=== PATIENT | male | born 1950 | race Caucasian/White ===

== ENCOUNTER 2020-08-01 06:46 | Outpatient (CLI) | payer OTHER, SELFPAY ==
--- NOTE | 2020-08-01 06:56 | USCV_ITS ---
Fito Au Age: 70 Gender: M : 1950 Exam Date: 08/01/2020 07:16 Ordering Phys: Sacha Smith DO Technologist: Ileana Castillo Exam Location: [facility] [place] Indication: MURMUR BP: 135 / 60 HR: 55 Rhythm: Sinus Technical Quality: Adequate MEASUREMENTS (Male / Female) Normal Values 2D ECHO LV Diastolic Diameter PLAX 3.1 cm 4.2 - 5.9 / 3.9 - 5.3 cm LV Systolic Diameter PLAX 2.7 cm LV Chamber Size 3.1 cm IVS Diastolic Thickness 1.6 cm 0.6 - 1.0 / 0.6 - 0.9 cm IVS Systolic Thickness 1.8 cm LVPW Diastolic Thickness 2.2 cm 0.6 - 1.0 / 0.6 - 0.9 cm LVPW Systolic Thickness 2.5 cm RV Chamber Size 3.4 cm LVOT Diameter 2.0 cm LV Ejection Fraction 2D Teich 31.7 % LV Ejection Fraction MOD 2C 41.4 % LV Ejection Fraction 2C AL 46.4 % LA Diameter 3.8 cm LA Width 3.8 cm LA Height 5.1 cm RA Width 2.9 cm RA Height 4.2 cm M-MODE LV Diastolic Diameter MM 3.3 cm 4.2 - 5.9 / 3.9 - 5.3 cm LV Systolic Diameter MM 3.0 cm LV Ejection Fraction MM Teich 23.8 % IVS Diastolic Thickness MM 0.8 cm 0.6 - 1.0 / 0.6 - 0.9 cm IVS Systolic Thickness MM 1.1 cm LVPW Diastolic Thickness MM 1.9 cm 0.6 - 1.0 / 0.6 - 0.9 cm LVPW Systolic Thickness MM 1.8 cm Aortic Annulus Diameter 2.8 cm LA Ao Ratio MM 1.8 MV E Point Septal Separation 0.7 cm DOPPLER AV Peak Velocity 100.0 cm/s LVOT Peak Velocity 95.0 cm/s AV Area Cont Eq vti 2.6 cm squared AV Area Cont Eq pk 3.1 cm squared MV Area PHT 2.4 cm squared Mitral E to A Ratio 1.0 MV E' Velocity 48.0 cm/s Mitral E to MV E' Ratio 9.6 Mitral E to LV E' Lateral Ratio 10.1 Mitral E to LV E' Septal Ratio 9.2 TR Peak Velocity 118.0 cm/s TR Peak Gradient 5.6 mmHg TV Peak E Velocity 42.0 cm/s Right Atrial Pressure 3.0 mmHg Pulmonary Artery Systolic Pressu 8.6 mmHg PV Peak Velocity 71.0 cm/s RV Acceleration Time 0.1 s RV Ejection Time 0.4 s RV AcT/ET 0.4 FINDINGS Left Ventricle Normal left ventricular size. LV systolic function is borderline normal with EF of 50%. Septal motion is consistent with prior surgery. Normal diastolic filling pattern. Right Ventricle The right ventricle is normal in size and function. Right Atrium The right atrium is normal in size. Left Atrium The left atrium is normal in size. Mitral Valve Structurally normal mitral valve without significant stenosis or prolapse. There is trace mitral regurgitation. Aortic Valve Not well-visualized. No significant aortic stenosis. There is no aortic regurgitation. Tricuspid Valve Structurally normal tricuspid valve without significant stenosis or regurgitation. Insufficient TR jet to calculate RVSP. Pulmonic Valve Not well-visualized. There is no pulmonic regurgitation. Pericardium Normal pericardium without effusion. Aorta Not well-visualized. CONCLUSIONS LV systolic function is borderline normal with EF 50%. Septal motion is consistent with prior surgery. Normal diastolic function. Trace mitral regurgitation. Compared to prior echocardiogram from 10/15/2016, no significant changes are noted. Bettio Shields MD (Electronically Signed) Final Date: 11 August 2020 11:33 S
== END 2020-08-01 06:47 | disposition home or self-care (01) ==
LOC: US 06:51
PROVIDERS: PCP Internal Medicine; Visit Provider Internal Medicine
DX: R01.1 Cardiac murmur, unspecified (principal); I34.0 Nonrheumatic mitral (valve) insufficiency
CPT/HCPCS: 93306

== ENCOUNTER 2022-03-20 07:57 | Observation (INO) | payer OTHER, SELFPAY ==
[2022-03-20] VITALS (63 sets, daily range): BP systolic 121–201; BP diastolic 63–122; PULSE 72–107; RESP 13–25; TEMP 36.3–37.1; O2SAT 81–99; BMI 30.5
--- NOTE | 2022-03-20 08:00 | ED_ITS ---
HPI - Arrhythmia/Palpitations General: Chief Complaint: Arrhythmia/Palpitations Stated Complaint: irregular heart rythm, high hr Time Seen by Provider: 03/20/22 08:00 History of Present Illness: Mr. Au is a 71-year-old gentleman with history of heart failure, hypertension, CABG x4 who presents to the emergency department due to abnormal heart rhythm. He reports symptom onset approximately 3 days ago spontaneously and acute at rest. He endorses a irregular feeling in his heartbeat and abnormal feeling in his chest. He does have mild associated fatigue however no significant shortness of breath or chest pain. He reports similar symptoms 1 time previously and had a secured entrance monitor placed however did not have recurrence of symptoms. He is not on anticoagulation. Intensity symptoms is mild. No recent changes in medications. No other specific changes in health, exacerbating, or alleviating factors identified. Onset (ago): day(s) Duration: constant Severity: mild Arrhythmia history: other Associated symptoms: Reports other Review of Systems General: Reports: 10 or more systems reviewed and unremarkable except in HPI and below PFSH ED PFSH: Medical History (Updated 03/22/22 @ 00:02 by ) BPH (benign prostatic hyperplasia) CAD (coronary artery disease) CHF (congestive heart failure) Diabetes mellitus type 2 in nonobese History of WV (myocardial infarction) HTN (hypertension) Hyperlipidemia Palpitations Surgical History (Updated 03/20/22 @ 11:59 by Kody Lyles MD) S/P CABG (coronary artery bypass graft) S/P knee surgery Family History Other CAD (coronary artery disease) Dementia Hyperlipidemia Hypertension Stroke Denies family history of Diabetes Chronic kidney disease (CKD) Anesthesia complication Bleeding disorder Family history of premature coronary artery disease Lung disease Cancer Social History Smoking and tobacco status: former smoker Alcohol intake: current Alcohol intake frequency: few times a week Alcohol type: beer Physical Exam Const: COMMON NORMALS: alert GENERAL APPEARANCE: cooperative and well developed HENMT: COMMON NORMALS: normocephalic and atraumatic HEAD & SCALP: normocephalic and atraumatic Eye: COMMON NORMALS: conjunctivae normal CONJUNCTIVA: Yes conjunctivae normal SCLERA: sclerae normal Neck/C-Spine: COMMON NORMALS: supple GENERAL: Yes trachea midline Resp: COMMON NORMALS: normal respiratory effort and clear to auscultation bilaterally EFFORT & INSPECTION: Yes able to speak in complete sentences AUSCULTATION: clear to auscultation bilaterally Cardio: COMMON NORMALS: regular rate RATE: regular rate RHYTHM: abnormal rhythm irregularly irregular GI: COMMON NORMALS: Soft to palpation PALPATION: Yes Soft to palpation and No Tenderness to palpation present (GI) Extremity: GENERAL: Yes normal exam except as noted and No edema Neuro: COMMON NORMALS: moves all extremities SENSORIUM/ORIENTATION: Yes alert and No Orientation impaired Psych: COMMON NORMALS: mental status grossly normal and Normal thought process present THOUGHT PROCESS: Normal thought process present Course ED course: - Patient was seen and evaluated by me at bedside - Patient placed on cardiac monitors, IV access obtained - Initial evaluation notable for exam as above - Labs and xrays personally interpreted by me. EKG with atrial fibrillation, no nspecific ST segment abnormalities. No STEMI. - Labs notable for no clear abnormality to explain atrial fibrillation. Delta troponin is negative. BNP mildly elevated. No UTI. - Imaging notable for no lobar consolidation or pneumothorax. - Upon serial reexamination after treatment the patient was similar - Based on patient history, evaluation, and testing as interpreted the most likely cause of the patient's condition is symptomatic new onset atrial fibrillation - The results of ED evaluation were discussed with the patient including plan for admission due to requirement for level of care not available if discharged to prevent significant worsening/deterioration. - Admitting service was contacted and Dr Lyles with the hospital service agreed to admit the patient - Patient was admitted without further deterioration or significant events. Note: Click bubbles or prepopulated wolfe in note writing are used for assistance with data collection and billing and are inherently more limited than narrative and other text portions of this note. Please use narrative for additional clinical history and defer to narrative/free test for any case of contradictory information. If information appears in only free text or click bubble it should be considered present or absent as reported. Please contact note administrative underwriter for clarifications of clinical information or contradictory information. MDM is a brief summary, contradictory or erroneous seeming information should be clarified and full note should be reviewed. Vital Signs: Vital signs: Vital Signs Temperature 97.8 F 03/21/22 13:26 Pulse Rate 71 03/21/22 13:26 Respiratory Rate 16 03/21/22 13:26 Blood Pressure 107/72 03/21/22 13:26 Pulse Oximetry 96 03/21/22 13:26 Oxygen Delivery Me thod 03/21/22 12:00 MDM - Arrhythmia/Palpitations Medical Decision Making 71-year-old gentleman with cardiac history presenting with new onset symptomatic atrial fibrillation. Admitted for further management. Medical Records I reviewed the patient's medical records. Lab Data I reviewed the patient's lab results. : 03/21/22 05:30 03/21/22 05:30 Radiology Impressions Chest X-Ray 03/20/22 08:09 Impression: Mild cardiomegaly. Laboratory Results WBC 7.8 10^3/uL (4.0-10.0) 03/20/22 08:42 RBC 5.56 10^6/uL (4.1-5.3) H 03/20/22 08:42 Hgb 16.2 g/dL (11.7-16.6) 03/20/22 08:42 Hct 50.8 % (42.0-52.0) 03/20/22 08:42 MCV 91.4 fl (80-94) 03/20/22 08:42 MCH 29.1 pg (28.0-34.0) 03/20/22 08:42 MCHC 31.9 g/dL (30.0-36.0) 03/20/22 08:42 RDW 13.5 % (12.1-15.1) 03/20/22 08:42 Plt Count 212 10^3/cmm (130-400) 03/20/22 08:42 MPV 9.6 fL (7.4-10.4) 03/20/22 08:42 Neut % (Auto) 75.3 % 03/20/22 08:42 Lymph % (Auto) 11.5 % 03/20/22 08:42 Cole % (Auto) 11.5 % 03/20/22 08:42 Eos % (Auto) 1.0 % 03/20/22 08:42 Baso % (Auto) 0.4 % 03/20/22 08:42 Neut # (Auto) 5.89 10^3/uL (1.8-7.7) 03/20/22 08:42 Lymph # (Auto) 0.9 10^3/uL (0.8-4.8) 03/20/22 08:42 Cole # (Auto) 0.9 10^3/uL (0.2-0.9) 03/20/22 08:42 Eos # (Auto) 0.1 10^3/uL (0.0-0.8) 03/20/22 08:42 Baso # (Auto) 0.0 10^3/uL (0.0-0.1) 03/20/22 08:42 Nucleated RBC % (auto) 0 % 03/20/22 08:42 Nucleated RBCs # 0.0 /100WBC 03/20/22 08:42 PT 13.40 SECONDS (12.1-14.9) 03/20/22 08:42 INR 0.99 (0.8-1.2) 03/20/22 08:42 APTT 32.9 SECONDS (23.9-36.7) 03/20/22 08:42 Sodium 141 mmol/L (136-145) 03/20/22 08:42 Potassium 4.6 mmol/L (3.5-5.1) 03/20/22 08:42 Chloride 103 mmol/L (98-107) 03/20/22 08:42 Carbon Dioxide 28 mmol/L (22-29) 03/20/22 08:42 Anion Gap 14.6 (5-19) 03/20/22 08:42 BUN 16 mg/dL (8-23) 03/20/22 08:42 Creatinine 0.9 mg/dL (0.7-1.2) 03/20/22 08:42 GFR Calculation 83.4 mL/min (90-130) L 03/20/22 08:42 Glucose 120 mg/dL (65-115) H 03/20/22 08:42 Calculated Osmolality 294 mOsm/kg (285-295) 03/20/22 08:42 Calcium 9.8 mg/dL (8.5-10.5) 03/20/22 08:42 Magnesium 2.1 mg/dL (1.7-2.3) 03/20/22 08:42 Total Bilirubin 0.7 mg/dL (0.15-1.2) 03/20/22 08:42 AST 13 U/L (0-40) 03/20/22 08:42 ALT 12 U/L (0-41) 03/20/22 08:42 Alkaline Phosphatase 91 U/L (40-130) 03/20/22 08:42 Troponin T Baseline 12 ng/L (0-15) 03/20/22 08:42 NT-Pro-B Natriuret Pep 964 pg/mL (0-125) H 03/20/22 08:42 Total Protein 7.7 g/dL (6.6-8.7) 03/20/22 08:42 Albumin 4.7 g/dL (3.5-5.2) 03/20/22 08:42 Globulin 3.0 g/dL (1.3-4.6) 03/20/22 08:42 TSH 2.36 uIU/mL (0.27-4.20) 03/20/22 08:42 Discharge Plan Discharge Patient Disposition: Placed in Observation Admit Provider: Kody Lyles Clinical Impression: Palpitations, New onset a-fib, Shortness of breath Discharge Diet: Cardiac and Diabetic Discharge Activity: Increase activity as tolerated Coding Level of Care Code ED Store Protection Specialist for Chg Fwd Exam Comprehensive
--- NOTE | 2022-03-20 08:09 | XR_ITS ---
WS: [id number] Portable AP upright chest, 03/20/2022 Clinical Data: palpitations Comparison: Portable chest, 10/23/2016. Findings: No nodules, masses or effusions are seen. The heart is slightly enlarged. The pulmonary vas cularity is not increased. No pneumonia or pneumothorax is seen. Midline sternotomy sutures are prese nt along with mediastinal clips.. XR/XR chest 1V portable [id number] Impression: Mild cardiomegaly.
--- NOTE | 2022-03-20 08:14 | ECG_ITS ---
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 Measurements Intervals [place] Rate: 76 P: ID: QRS: -16 QRSD: 90 T: 5 QT: 352 QTc: 396 Interpretive Statements ATRIAL FIBRILLATION INFERIOR MYOCARDIAL INFARCTION , PROBABLY OLD [40+ ms Q WAVE AND/OR ST/T ABNORMALITY IN II/aVF] Compared to ECG 10/21/2016 05:31:38 Myocardial infarct finding now present Sinus tachycardia no longer present T-wave abnormality no longer present Possible ischemia no longer present Electronically Signed On 03-20-2022 17:46:55 CDT by Betito Shields M.D. [id number] f
[2022-03-20 08:57] LABS: Basophils % 0.4 %; Eosinophils # 0.1 10^3/uL (0.0-0.8); Hematocrit 50.8 % (42.0-52.0); Hemoglobin 16.2 g/dL (11.7-16.6); Lymphocytes # 0.9 10^3/uL (0.8-4.8); Lymphocytes % 11.5 %; Mean Corpuscular HGB Conc 31.9 g/dL (30.0-36.0); Mean Corpuscular Hemoglobin 29.1 pg (28.0-34.0); Mean Corpuscular Volume 91.4 fl (80-94); Mean Platelet Volume 9.6 fL (7.4-10.4); Monocytes # 0.9 10^3/uL (0.2-0.9); Monocytes % 11.5 %; Neutrophils # 5.89 10^3/uL (1.8-7.7); Neutrophils % 75.3 %; Nucleated Red Blood Cells % 0 %; Platelet Count 212 10^3/cmm (130-400); Red Blood Count 5.56 10^6/uL (4.1-5.3); Red Cell Distribution Width 13.5 % (12.1-15.1); White Blood Count 7.8 10^3/uL (4.0-10.0)
[2022-03-20 09:15] LABS: Troponin(5th) Baseline 12 ng/L (0-15)
[2022-03-20 09:20] LABS: Alanine Aminotransferase 12 U/L (0-41); Albumin Level 4.7 g/dL (3.5-5.2); Alkaline Phosphatase 91 U/L (40-130); Anion Gap 14.6 (5-19); Aspartate Amino Transferase 13 U/L (0-40); Blood Urea Nitrogen 16 mg/dL (8-23); Calcium 9.8 mg/dL (8.5-10.5); Carbon Dioxide 28 mmol/L (22-29); Chloride 103 mmol/L (98-107); Glomerular Filtration Rate 83.4 mL/min (90-130); Glucose 120 mg/dL (65-115); Magnesium 2.1 mg/dL (1.7-2.3); NT Pro B Type Natriuretic Pept 964 pg/mL (0-125); Osmolality Calculated 294 mOsm/kg (285-295); Potassium 4.6 mmol/L (3.5-5.1); Sodium 141 mmol/L (136-145); Thyroid Stimulating Hormone 2.36 uIU/mL (0.27-4.20); Total Bilirubin 0.7 mg/dL (0.15-1.2); Total Protein 7.7 g/dL (6.6-8.7)
[2022-03-20 09:27] LABS: INR 0.99 (0.8-1.2)
[2022-03-20 09:28] LABS: Partial Thromboplastin Time 32.9 SECONDS (23.9-36.7)
--- NOTE | 2022-03-20 09:33 | PC.PHAR ---
pt states he takes care of his own medications-pt states he stop taking aspirin a few months ago-pt states he stop taking his metformin er 500mg bid filled on 02/19/22 90d/s pt states stop taking about a month and half ago-
--- NOTE | 2022-03-20 10:34 | ECG_ITS ---
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 Measurements Intervals [place] Rate: 80 P: WV: QRS: -13 QRSD: 93 T: 68 QT: 357 QTc: 413 Interpretive Statements ATRIAL FIBRILLATION INFERIOR MYOCARDIAL INFARCTION , OF INDETERMINATE AGE [40+ ms Q WAVE AND/OR ST/T ABNORMALITY IN II/aVF] Compared to ECG 03/20/2022 08:14:16 No significant changes Electronically Signed On 03-20-2022 17:51:18 CDT by Betito Shields M.D. [id number]
--- NOTE | 2022-03-20 10:41 | USCV_ITS ---
Fito Au Age: 71 Gender: M : 1950 Exam Date: 03/20/2022 11:06 Ordering Phys: Kody Lyles MD Technologist: ISAAC Exam Location: [facility] [place] Indication: NEW ONSET A FIB BP: 170 / 116 HR: 81 Rhythm: Atrial fibrillation Technical Quality: Adequate MEASUREMENTS (Male / Female) Normal Values 2D ECHO LV Diastolic Diameter PLAX 5.2 cm 4.2 - 5.9 / 3.9 - 5.3 cm LV Systolic Diameter PLAX 3.6 cm IVS Diastolic Thickness 1.5 cm 0.6 - 1.0 / 0.6 - 0.9 cm IVS Systolic Thickness 2.3 cm LVPW Diastolic Thickness 1.7 cm 0.6 - 1.0 / 0.6 - 0.9 cm LVPW Systolic Thickness 1.9 cm LVOT Diameter 2.0 cm LV Ejection Fraction 2D Teich 58.3 % LV Ejection Fraction MOD 2C 55.6 % LV Ejection Fraction 2C AL 57.5 % LA Diameter 4.7 cm LA Width 4.1 cm LA Height 5.8 cm RA Width 3.9 cm RA Height 5.4 cm Aorta at Sinotubular Diameter 2.6 cm IVC Diameter 1.7 cm M-MODE Aortic Annulus Diameter 2.6 cm LA Ao Ratio MM 1.6 MV E Point Septal Separation 0.3 cm DOPPLER AV Peak Velocity 273.5 cm/s LVOT Peak Velocity 76.0 cm/s AV Area Cont Eq vti 0.8 cm squared AV Area Cont Eq pk 0.9 cm squared MV Peak Velocity 131.0 cm/s MV Area PHT 3.1 cm squared MV E' Velocity 58.5 cm/s Mitral E to MV E' Ratio 9.9 Mitral E to LV E' Lateral Ratio 9.0 Mitral E to LV E' Septal Ratio 11.1 TR Peak Velocity 203.1 cm/s TR Peak Gradient 16.5 mmHg TR Mean Velocity 183.0 cm/s TR Mean Gradient 13.4 mmHg TR Velocity Time Integral 57.2 cm TV Peak E Velocity 55.0 cm/s Right Atrial Pressure 3.0 mmHg Pulmonary Artery Systolic Pressu 19.5 mmHg PV Peak Velocity 184.0 cm/s RV Acceleration Time 0.1 s RV Ejection Time 0.3 s RV AcT/ET 0.3 FINDINGS Left Ventricle Normal left ventricular size, systolic function and wall thickness, with no regional wall motion abnormalities. Left ventricular ejection fraction is estimated at 60 %. Right Ventricle Normal right ventricular size and systolic function. Right Atrium Normal right atrial size. Left Atrium Mildly increased left atrial size. Mitral Valve Mildly thickened mitral valve. No mitral valve stenosis. Trace mitral valve regurgitation. Aortic Valve Moderately thickened and calcified trileaflet aortic valve. Visually appears to have at least moderate aortic valve stenosis. Aortic valve peak velocity 2.7 m/s, peak gradient 31 mm Hg, mean gradient 16.8 mmHg, FRANCES 0.8 cm squared. Dimensionless valve index 0.28. No aortic valve regurgitation. Tricuspid Valve Structurally normal tricuspid valve. No tricuspid valve stenosis. Trace tricuspid valve regurgitation. Pulmonic Valve Pulmonic valve not well visualized. No pulmonary valve stenosis. Trace pulmonary valve regurgitation. Pericardium No pericardial effusion. Aorta Normal size aortic root and proximal ascending aorta. IVC Normal IVC dimension with >50% respiratory change of the inferior vena cava. CONCLUSIONS 1. Normal left ventricular size, systolic function and wall thickness, with no regional wall motion abnormalities. Left ventricular ejection fraction is estimated at 60 %. 2. Visually appears to have at least moderate aortic valve stenosis. Aortic valve peak velocity 2.7 m/s, peak gradient 31 mm Hg, mean gradient 16.8 mmHg, FRANCES 0.8 cm squared. Dimensionless valve index 0.28. No aortic valve regurgitation. 3. When compared to previous study dated 08/01/2020, there may not have been any significant change. Medina Sims MD (Electronically Signed) Final Date: 20 March 2022 17:59 S
[2022-03-20 11:21] LABS: Glucose Urine UA Norm (Normal); Ketones Urine Negative (Negative); Protein Urine Neg (Negative); Specific Gravity, Urine 1.015 (1.005-1.030); Urine Appearance Clear (CLEAR); Urine Color Yellow (Yellow); pH Urine 5 (5-7)
[2022-03-20 11:22] LABS: Add Urine Culture? No; Bilirubin Urine Neg (Negative); Blood Urine Neg (Negative); Leukocyte Esterase Urine Negative (Negative); Nitrate Urine Negative (Negative); RBC Urine 0-4 /hpf (0-2); Squamous Epithelial Cell Urine 0-4 /hpf (0-5); Urobilinogen Urine Norm (Negative); WBC Urine 0-4 /hpf (0-5)
[2022-03-20 11:51] LABS: Troponin 5 2HR 8.07 ng/L (0-15)
--- NOTE | 2022-03-20 11:55 | PM.HP ---
Providers/Chief Complaint Admitting Physician: Kody Lyles MD Primary Care Provider: Sacha Smith DO Chief Complaint: irregular heart rythm, high hr History of Present Illness Fito Au is a 71 year old male who presents to the emergency department with complaints of palpitations since Wednesday. He denies any chest discomfort. He reports sometimes it feels like its going fast and sometimes slow. He denies any nausea vomiting, shortness of breath. He reports that while this was occurring he even went out to mow his lawn. He reports no recent illness, fever. He does report to drinking alcohol on occasion, sometimes perhaps as many as 5 beers on the weekends. On average though he drinks less than 1/day. He reports quite a bit of caffeine, 6-7 drinks per day. He had a previous echocardiogram in 2020 demonstrating no evidence of atrial fibrillation or flutter. This was done for palpitations. Review of Systems General: Reports: 10 or more systems reviewed and unremarkable except in HPI and below Const: Denies: fever(s) or chills Eyes: Denies: change in vision ENMT: Denies: throat pain Card: Reports: palpitations and irregular heart rhythm; Denies: chest pain, swelling of feet/ankles or dyspnea on exertion Resp: Denies: dyspnea GI: Denies: abdominal pain, nausea, vomiting, hematemesis, hematochezia or melena : Denies: flank pain Musc: Denies: neck pain Skin/Breast: Denies: rash Neuro: Denies: headache(s) Psych: Denies: anxiety or depression Endo: Denies: polyuria Ronal/Lymph: Denies: easy bruising All/Imm: Denies: urticaria Medications/Allergies Home Medications Medication Instructions Recorded Confirmed Last Taken Type metoprolol tartrate 50 mg tablet 50 mg PO BID #60 tabs 10/13/21 03/20/22 03/20/22 Rx amlodipine 10 mg tablet 10 mg PO QAM 03/20/22 03/20/22 03/20/22 History amlodipine 5 mg tablet 5 mg PO BEDTIME 03/20/22 03/20/22 03/19/22 History isosorbide mononitrate 30 mg 30 mg PO QAM 03/20/22 03/20/22 03/20/22 History tablet,extended release 24 hr losartan 100 mg tablet 100 mg PO QAM 03/20/22 03/20/22 03/20/22 History metformin 500 mg tablet,extended 500 mg PO BID 03/20/22 03/20/22 1 Month Ago History release 24 hr ~02/17/22 pt stop taking simvastatin 40 mg tablet 40 mg PO BEDTIME 03/20/22 03/20/22 03/19/22 History tamsulosin 0.4 mg capsule 0.4 mg PO BEDTIME 03/20/22 03/20/22 03/19/22 History Allergies Allergy/AdvReac Type Severity Reaction Status Date / Time No Known Allergies Allergy Verified 03/20/22 09:30 PFSH Acute PFSH: Medical History (Updated 03/20/22 @ 12:03 by Kody Lyles MD) BPH (benign prostatic hyperplasia) CAD (coronary artery disease) CHF (congestive heart failure) Diabetes mellitus type 2 in nonobese History of [place] (myocardial infarction) HTN (hypertension) Hyperlipidemia Palpitations Surgical History (Updated 03/20/22 @ 11:59 by Kody Lyles MD) S/P CABG (coronary artery bypass graft) S/P knee surgery Family History Other CAD (coronary artery disease) Dementia Hyperlipidemia Hypertension Stroke Denies family history of Diabetes Chronic kidney disease (CKD) Anesthesia complication Bleeding disorder Family history of premature coronary artery disease Lung disease Cancer Social History Smoking and tobacco status: former smoker Alcohol intake: current Alcohol intake frequency: few times a week Alcohol type: beer Vitals/I&O/Wt Last Vital Signs Temp 97.9 F 03/20/22 08:03 Pulse 84 03/20/22 11:00 Resp 21 H 03/20/22 11:00 BP 159/89 03/20/22 11:00 Pulse Ox 94 03/20/22 11:00 O2 Del Method 03/20/22 08:31 Weight last 48 hrs Weight 96.615 kg Physical Exam Narrative: General exam is a white male, no apparent distress, irregular heart rhythm noted on monitor HEENT: Atraumatic and normocephalic. Pupils equally round. Oropharynx clear. Neck is supple no lymphadenopathy or thyromegaly Cardiovascular irregular, irregular with a harsh 3/6 systolic murmur heard best at the right upper sternal border. Sternotomy scar noted Lungs clear no wheezing or crackles Abdomen is soft nontender with positive bowel sounds no obvious organomegaly exams deferred Extremities no cyanosis clubbing or edema, cap refill brisk Skin without rash Neuro no obvious focal deficits Data : 03/20/22 08:42 03/20/22 08:42 Other Labs: EKG demonstrates atrial flutter, left axis deviation, Q waves inferiorly and poor R wave progression Previous echocardiogram in 2019 demonstrated an EF of 50% and trace mitral regurgitation BNP 964, troponin 12 and repeat of 8 LFTs normal TSH 2.36 Magnesium normal Urinalysis negative Chest x-ray no infiltrate. Postoperative heart noted secondary to sternotomy wires A&P Assessment and plan (1) New onset a-fib: Patient with new onset atrial fibrillation/flutter. Discussed bleeding risk with the patient. Will initiate full dose anticoagulation. Initiate Lovenox with plans to convert to Eliquis quickly by time of discharge. [id number] score elevated with hypertension, coronary disease history in face of atrial fibrillation. He is amenable to anticoagulation. Currently he is well controlled as far as his rate. No change in his metoprolol 50 mg twice daily. Check echocardiogram to ensure that EF has not been reduced significantly. If it is could consider nuclear stress testing, possibly as an outpatient Status: Acute (2) Heart murmur: Significant heart murmur. Await echocardiogram. Concerned with aortic stenosis. Status: Acute (3) CAD (coronary artery disease): Add aspirin, low-dose. Continue the patient's home medicines including beta-maximus, statin, nitrate Status: Acute (4) Diabetes mellitus type 2 in nonobese: Consistent carb diet, mild sliding scale insulin Status: Acute Plan Other medical problems as outlined in past medical history Full Code Lovenox will suffice for DVT prophylaxis Attestations Medical Necessity Statement*: Will need less than 2 midnight stay for evaluation and treatment of new onset atrial flutter Coding Level of Care Code Acute [place] for [facility] Diagnoses New onset a-fib I48.91 Heart murmur R01.1 CAD (coronary artery disease) I25.10 Diabetes mellitus type 2 in nonobese E11.9
[2022-03-20 12:29] LABS: Troponin 5 2HR Delta -3.93 ABS# (0-10)
[2022-03-20] MEDS: enoxaparin 100 mg/mL Syringe SUBCUT (13:24)
[2022-03-20 13:45] LABS: Glucose Point of Care 101 mg/dL (70-110)
--- NOTE | 2022-03-20 14:09 | ECG_ITS ---
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 Measurements Intervals [place] Rate: 75 P: [place]: QRS: -17 QRSD: 95 T: 76 QT: 364 QTc: 409 Interpretive Statements ATRIAL FIBRILLATION POSSIBLE ANTERIOR MYOCARDIAL INFARCTION , OF INDETERMINATE AGE [30 ms Q WAVE IN V3/V4, OR R < 0.2 mV IN V4] INFERIOR MYOCARDIAL INFARCTION , PROBABLY OLD [40+ ms Q WAVE AND/OR ST/T ABNORMALITY IN II/aVF] Compared to ECG 03/20/2022 10:34:57 No significant changes Electronically Signed On 03-20-2022 17:48:30 CDT by Betito Shields M.D. [id number]
[2022-03-20 15:14] LABS: Troponin 5 6HR 7.89 ng/L (0-15)
[2022-03-20 15:46] LABS: Troponin 5 6HR Delta -4.11 ng/L (0-12)
[2022-03-20 16:59] LABS: Glucose Point of Care 139 mg/dL (70-110)
[2022-03-20] MEDS: atorvastatin 40 mg Tablet 20 MG PO (21:47)
[2022-03-20] MEDS: tamsulosin 0.4 mg Capsule PO (21:47)
[2022-03-21] VITALS (7 sets, daily range): BP systolic 107–158; BP diastolic 72–93; PULSE 70–88; RESP 16–19; TEMP 36.5–36.8; O2SAT 94–96
[2022-03-21] MEDS: enoxaparin 100 mg/mL Syringe SUBCUT ×2 (01:19→11:54)
[2022-03-21] MEDS: losartan 50 mg Tablet 100 MG PO (05:32)
[2022-03-21] MEDS: isosorbide mononitrate ER 30 mg Tablet PO (05:35)
[2022-03-21] MEDS: amlodipine 10 mg Tablet PO (05:36)
[2022-03-21 05:49] LABS: Basophils % 0.4 %; Eosinophils # 0.1 10^3/uL (0.0-0.8); Eosinophils % 1.5 %; Hematocrit 43.6 % (42.0-52.0); Hemoglobin 14.1 g/dL (11.7-16.6); Lymphocytes # 1.2 10^3/uL (0.8-4.8); Lymphocytes % 18.1 %; Mean Corpuscular HGB Conc 32.3 g/dL (30.0-36.0); Mean Corpuscular Hemoglobin 29.4 pg (28.0-34.0); Mean Corpuscular Volume 90.8 fl (80-94); Mean Platelet Volume 9.6 fL (7.4-10.4); Monocytes # 0.8 10^3/uL (0.2-0.9); Monocytes % 12.3 %; Neutrophils # 4.62 10^3/uL (1.8-7.7); Neutrophils % 67.4 %; Nucleated Red Blood Cells % 0 %; Platelet Count 183 10^3/cmm (130-400); Red Cell Distribution Width 13.3 % (12.1-15.1); White Blood Count 6.9 10^3/uL (4.0-10.0)
[2022-03-21 06:09] LABS: Glucose Point of Care 118 mg/dL (70-110)
[2022-03-21 06:15] LABS: Alanine Aminotransferase 9 U/L (0-41); Albumin Level 3.9 g/dL (3.5-5.2); Alkaline Phosphatase 77 U/L (40-130); Anion Gap 13.3 (5-19); Aspartate Amino Transferase 14 U/L (0-40); Blood Urea Nitrogen 14 mg/dL (8-23); Calcium 9.1 mg/dL (8.5-10.5); Carbon Dioxide 27 mmol/L (22-29); Chloride 106 mmol/L (98-107); Globulin 2.9 g/dL (1.3-4.6); Glomerular Filtration Rate 95.6 mL/min (90-130); Glucose 125 mg/dL (65-115); Magnesium 2.1 mg/dL (1.7-2.3); Osmolality Calculated 296 mOsm/kg (285-295); Potassium 4.3 mmol/L (3.5-5.1); Sodium 142 mmol/L (136-145); Total Bilirubin 0.5 mg/dL (0.15-1.2); Total Protein 6.8 g/dL (6.6-8.7)
[2022-03-21] MEDS: aspirin 81 mg EC Tablet PO (09:05)
[2022-03-21] MEDS: metoprolol tartrate 50 mg Tablet PO (09:05)
[2022-03-21 11:34] LABS: Glucose Point of Care 132 mg/dL (70-110)
--- NOTE | 2022-03-21 13:10 | P.DS_ITS ---
Discharge Providers Date of Admission: 03/20/22 09:43 Date of Discharge: March 21, 2022 Attending Provider at Admission: Kody Lyles MD Attending Provider at Discharge: Kennedy Landrum Primary Care Provider: Sacha Smith DO Diagnoses at Discharge Discharge Diagnosis (1) New onset a-fib: Status: Acute (2) Heart murmur: Status: Acute (3) CAD (coronary artery disease): Status: Acute (4) Diabetes mellitus type 2 in nonobese: Status: Acute Reason for Visit Reason for Visit: irregular heart rythm, high hr Hospital Course Hospital Course Pleasant 71-year-old gentleman with history of CAD, HFpEF, DM2, HTN, HLD, presented after having palpitations, found to have new onset atrial fibrillation. Rate for the most part controlled on the metoprolol he has been on although initially noted occasionally rising up to 105-107. He denies any chest pain or pressure. Troponin EKG series not suggestive of acute MN. [place] rdiogram showed normal ejection fraction. No regional wall motion normality. Noted at least moderate aortic stenosis. He is feeling much better. With heart rate controlled he denies any chest pain or pressure and currently is not having any palpitations. He feels good about going home. While in the hospital he was started on anticoagulation with Lovenox for stroke risk reduction, and this was transitioned to Eliquis at discharge. Please follow-up with him regarding his symptoms, as well as regarding at least moderate aortic stenosis. Consider referral to cardiology for follow-up. Continue to optimize cardiovascular risk factors. Physical Exam Const: COMMON NORMALS: patient oriented x3 and alert GENERAL APPEARANCE: cooperative ORIENTATION/CONSCIOUSNESS: Yes awake HENMT: COMMON NORMALS: oropharynx normal Neck/C-Spine: COMMON NORMALS: no JVD Resp: COMMON NORMALS: normal respiratory effort and clear to auscultation bilaterally AUSCULTATION: clear to auscultation bilaterally Cardio: COMMON NORMALS: no JVD, S1 normal heart sound present, S2 normal heart sound present and No murmurs present (Cardio) RHYTHM: abnormal rhythm irregularly irregular HEART SOUNDS: S1 normal heart sound present and S2 normal heart sound present GI: COMMON NORMALS: Normal to inspection, nondistended, normoactive bowel sounds present, Soft to palpation and non-tender PALPATION: Yes Soft to palpation Extremity: COMMON NORMALS: no joint enlargement and no pedal edema Neuro: COMMON NORMALS: patient oriented x3 and moves all extremities SENSO RIUM/ORIENTATION: Yes alert Skin: COMMON NORMALS: no rashes or lesions noted GENERAL SKIN EXAM: no rashes or lesions noted Discharge Data Studies Completed and Pending Completed Studies During Hospitalization Category Date Time Status XR chest 1V portable [id number] Stat Exams 03/20/22 08:09 Completed CV. echo complete* [id number] Routine Ultrasound 03/20/22 10:41 Completed Radiology Impressions Chest X-Ray 03/20/22 08:09 Impression: Mild cardiomegaly. Laboratory Results WBC 6.9 10^3/uL (4.0-10.0) 03/21/22 05:30 RBC 4.80 10^6/uL (4.1-5.3) 03/21/22 05:30 Hgb 14.1 g/dL (11.7-16.6) 03/21/22 05:30 Hct 43.6 % (42.0-52.0) 03/21/22 05:30 MCV 90.8 fl (80-94) 03/21/22 05:30 MCH 29.4 pg (28.0-34.0) 03/21/22 05:30 MCHC 32.3 g/dL (30.0-36.0) 03/21/22 05:30 RDW 13.3 % (12.1-15.1) 03/21/22 05:30 Plt Count 183 10^3/cmm (130-400) 03/21/22 05:30 MPV 9.6 fL (7.4-10.4) 03/21/22 05:30 Neut % (Auto) 67.4 % 03/21/22 05:30 Lymph % (Auto) 18.1 % 03/21/22 05:30 Vernon % (Auto) 12.3 % 03/21/22 05:30 Eos % (Auto) 1.5 % 03/21/22 05:30 Baso % (Auto) 0.4 % 03/21/22 05:30 Neut # (Auto) 4.62 10^3/uL (1.8-7.7) 03/21/22 05:30 Lymph # (Auto) 1.2 10^3/uL (0.8-4.8) 03/21/22 05:30 Vernon # (Auto) 0.8 10^3/uL (0.2-0.9) 03/21/22 05:30 Eos # (Auto) 0.1 10^3/uL (0.0-0.8) 03/21/22 05:30 Baso # (Auto) 0.0 10^3/uL (0.0-0.1) 03/21/22 05:30 Nucleated RBC % (auto) 0 % 03/21/22 05:30 Nucleated RBCs # 0.0 /100WBC 03/21/22 05:30 PT 13.40 SECONDS (12.1-14.9) 03/20/22 08:42 INR 0.99 (0.8-1.2) 03/20/22 08:42 APTT 32.9 SECONDS (23.9-36.7) 03/20/22 08:42 Sodium 142 mmol/L (136-145) 03/21/22 05:30 Potassium 4.3 mmol/L (3.5-5.1) 03/21/22 05:30 Chloride 106 mmol/L (98-107) 03/21/22 05:30 Carbon Dioxide 27 mmol/L (22-29) 03/21/22 05:30 Anion Gap 13.3 (5-19) 03/21/22 05:30 BUN 14 mg/dL (8-23) 03/21/22 05:30 Creatinine 0.8 mg/dL (0.7-1.2) 03/21/22 05:30 GFR Calculation 95.6 mL/min (90-130) 03/21/22 05:30 Glucose 125 mg/dL (65-115) H 03/21/22 05:30 POC Glucose 132 mg/dL (70-110) H 03/21/22 11:09 Calculated Osmolality 296 mOsm/kg (285-295) H 03/21/22 05:30 Calcium 9.1 mg/dL (8.5-10.5) 03/21/22 05:30 Magnesium 2.1 mg/dL (1.7-2.3) 03/21/22 05:30 Total Bilirubin 0.5 mg/dL (0.15-1.2) 03/21/22 05:30 AST 14 U/L (0-40) 03/21/22 05:30 ALT 9 U/L (0-41) 03/21/22 05:30 Alkaline Phosphatase 77 U/L (40-130) 03/21/22 05:30 Troponin T Baseline 12 ng/L (0-15) 03/20/22 08:42 Troponin T 120 Minute 8.07 ng/L (0-15) 03/20/22 10:50 Delta Troponin T -3.93 ABS# (0-10) L 03/20/22 10:50 Troponin T Hi Sens 6Hr 7.89 ng/L (0-15) 03/20/22 14:45 Troponin T Hi Sens 6Hr Delta -4.11 ng/L (0-12) L 03/20/22 14:45 NT-Pro-B Natriuret Pep 964 pg/mL (0-125) H 03/20/22 08:42 Total Protein 6.8 g/dL (6.6-8.7) 03/21/22 05:30 Albumin 3.9 g/dL (3.5-5.2) 03/21/22 05:30 Globulin 2.9 g/dL (1.3-4.6) 03/21/22 05:30 TSH 2.36 uIU/mL (0.27-4.20) 03/20/22 08:42 Urine Color Yellow (Yellow) 03/20/22 10:51 Urine Appearance Clear (CLEAR) 03/20/22 10:51 Urine pH 5 (5-7) 03/20/22 10:51 Ur Specific [place] 1.015 (1.005-1.030) 03/20/22 10:51 Urine Protein Neg (Negative) 03/20/22 10:51 Urine Glucose (UA) Norm (Normal) 03/20/22 10:51 Urine Ketones Negative (Negative) 03/20/22 10:51 Urine Blood Neg (Negative) 03/20/22 10:51 Urine Nitrate Negative (Negative) 03/20/22 10:51 Urine Bilirubin Neg (Negative) 03/20/22 10:51 Urine Urobilinogen Norm mg/dL (Negative) 03/20/22 10:51 Ur Leukocyte Esterase Negative (Negative) 03/20/22 10:51 Urine RBC 0-4 /hpf (0-2) H 03/20/22 10:51 Urine WBC 0-4 /hpf (0-5) H 03/20/22 10:51 Ur Squamous Epith Cells 0-4 /hpf (0-5) H 03/20/22 10:51 Amorphous Sediment Not Reportable 03/20/22 10:51 Urine Bacteria None /hpf (NONE) 03/20/22 10:51 Vitals Last Vital Signs Temp 97.8 F 03/21/22 12:00 Pulse 71 03/21/22 12:00 Resp 16 03/21/22 12:00 BP 107/72 03/21/22 12:00 Pulse Ox 96 03/21/22 12:00 O2 Del Method 03/21/22 12:00 Discharge Plan Discharge Patient Disposition: Home Condition: Stable Prescriptions: New apixaban 5 mg tablet 5 mg PO BID Qty: 180 0RF Continued metoprolol tartrate 50 mg tablet 50 mg PO BID Qty: 60 0RF Rx Instructions: Make follow-up for further refills amlodipine 5 mg tablet 5 mg PO BEDTIME tamsulosin 0.4 mg capsule 0.4 mg PO BEDTIME isosorbide mononitrate 30 mg tablet extended release 24 hr 30 mg PO QAM Rx Instructions: Needs follow-up for further refills simvastatin 40 mg tablet 40 mg PO BEDTIME amlodipine 10 mg tablet 10 mg PO QAM losartan 100 mg tablet 100 mg PO QAM Rx Instructions: Make follow-up for further refills metformin 500 mg tablet extended release 24 hr 500 mg PO BID Discharge Orders: Discharge Order (Routine); Ordered 03/21/22 Ordered By: Kennedy Landrum Referrals: Sacha Smith DO [Primary Care Provider] - 4-7 days (Please call Martínez Meade for an follow-up appointment in 4 to 7 days. ) Discharge Diet: Cardiac and Diabetic Discharge Activity: Increase activity as tolerated Patient Instructions: Apixaban (By mouth), A-fib (Atrial Fibrillation) (GEN), Aortic Stenosis (GEN) Activity Restrictions/Additional Instructions: Please discuss with your primary doctor regarding new onset atrial fibrillation. Please discuss regarding being started on anticoagulation with Eliquis. Please discuss with your doctor regarding at least moderate aortic stenosis. Discuss referral for follow-up with cardiology. Discharge Attestations Time Spent in Discharge Care*: greater than 30 min Quality Metrics Clinical Quality Measures [ No reported AMI, CVA or VTE this stay] Coding Level of Care Code Acute Chg FW DC note Diagnoses New onset a-fib I48.91 Heart murmur R01.1 CAD (coronary artery disease) I25.10 Diabetes mellitus type 2 in nonobese E11.9
== END 2022-03-21 13:28 | disposition home or self-care (01) ==
LOC: ER 09:43 → MEDSURG 14:26
PROVIDERS: Admitting Provider Internal Medicine; Emergency Provider Emergency Medicine; PCP Internal Medicine; Visit Provider Internal Medicine
DX: I48.91 Unspecified atrial fibrillation (principal); R01.1 Cardiac murmur, unspecified; I25.10 Atherosclerotic heart disease of native coronary artery without angina pectoris; E11.9 Type 2 diabetes mellitus without complications; I11.0 Hypertensive heart disease with heart failure; I50.30 Unspecified diastolic (congestive) heart failure; E78.5 Hyperlipidemia, unspecified; N40.0 Benign prostatic hyperplasia without lower urinary tract symptoms; I25.2 Old myocardial infarction; Z95.1 Presence of aortocoronary bypass graft; Z87.891 Personal history of nicotine dependence
CPT/HCPCS: 36415; 36416; 71045; 80053; 81001; 82962; 83735; 83880; 84443; 84484; 85025; 85610; 85730; 93005; 93306; 96372; 99285; G0378; J1650

== ENCOUNTER 2022-07-17 08:56 | Outpatient (CLI) | payer OTHER, SELFPAY ==
[2022-07-17 10:01] VITALS: BMI 31.0
--- NOTE | 2022-07-17 10:05 | NMCV_ITS ---
NM yuki perf SPECT r/s* [id number] Fito Au Age: 71 Gender: M : 1950 Exam Date: 07/17/2022 10:22 Ordering Phys: Nuha Connell MD ([email or web address]) Technologist: HEIDI Cruz Exam Location: [facility] Indications: HEART FAILURE STRESS TEST Please see separate stress test report in [facility] for full findings IMAGE PROTOCOL Rest/Stress 1 Lexiscan Day Radiopharmaceutical Dose (mCi) Administration Site Administered by Rest: Tc-99m 11.0 IV HEIDI Cruz Sestamibi Stress:Tc-99m 32.3 IV HEIDI Parisi Sestamibi Rest: 17-Jul-2022 60 Discovery 630 Stress: 17-Jul-2022 30 Discovery 630 0.4mg Lexiscan. Images obtained in supine and prone position. SPECT RESULTS Technical Quality: Excellent Raw Data Analysis: Normal Image Corrections: No attenuation or motion correction applied Summed Stress Score: 6 Summed Rest Score: 9 Summed Difference Score: 1 PERFUSION FINDINGS Moderate area of moderately decreased tracer uptake in the basal and mid inferior and mid inferoseptal regions. As subtle area of reversibility was noted in the mid inferoseptal region FUNCTIONAL RESULTS (calculated via Gated SPECT) Stress Image LV EF (%): 56 Stress EDV (mL):137 TID: 1.12 Stress ESV (mL):60 FUNCTIONAL FINDINGS: Segmental wall motion analysis revealing a diffuse hypokinesia of the septum IMPRESSIONS #1. Myocardial perfusion imaging revealing moderate area of persistent decreased tracer uptake in the distal and mid inferior and mid inferoseptal regions with a subtle area of reversibility in the inferoseptal region suggesting myocardial scarring in the distribution of the right coronary artery with a very small area of filomena-infarction ischemia. #2. Normal LV ejection fraction 56%. #3. LV wall motion analysis revealing diffuse hypokinesia of the septum. #4. Mildly dilated LV cavity, with an end-systolic volume of 60 mL No similar previous studies are available for comparison Dr Nuha Connell MD [facility] (Electronically Signed) Final Date: 17 July 2022 21:42 S
--- NOTE | 2022-07-17 10:05 | ECG_ITS ---
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 Interpretive Statements NAME OF STUDY: LEXISCAN SESTAMIBI STRESS TEST INDICATION: CHF, PROCEDURE: At the baseline, the EKG revealed normal sinus rhythm with a borderline first-degree AV block. Poor R wave progression. Nonspecific T wave changes. The baseline heart was 55 bpm with a blood pressue of 108/80 mm of Hg. Lexiscan was infused over a period of 20 seconds. A total of 0.4 milligrams of Lexiscan was infused. The stress phase was continued for a total of 5 minutes. Heart rate at the end of the stress phase was 69 bpm with a blood pressure 117/72 mm of Hg. The EKG at the peak infusion revealed no significant changes. Sestamibi was injected 20 seconds after the Lexiscan infusion. Heart rate at the end of the recovery phase was 62 bpm with a blood pressure of 132/71 mm of Hg. CONCLUSION: 1. No significant EKG changes with the LexiScan infusion 2. No LexiScan induced chest pain or cardiac arrhythmia 3. Normal blood pressure and heart rate response 4. Sestamibi/sestamibi perfusion scan pending; see separate report. Electronically Signed On 07-17-2022 16:25:26 SAVE ALL OPERATOR by Nuha Connell M.D. [email or web address]
[2022-07-17] MEDS: regadenoson 0.4 Mg/5 ml Syringe IVP (10:50)
[2022-07-17 12:42] VITALS: BP 132/71; PULSE 64
== END 2022-07-17 08:57 | disposition home or self-care (01) ==
LOC: CDL 08:57
PROVIDERS: PCP Internal Medicine; Visit Provider Internal Medicine Cardiovascular Disease
DX: I50.9 Heart failure, unspecified (principal)
CPT/HCPCS: 36415; 78452; 93017; 96374; A9500; J2785

== ENCOUNTER 2022-11-13 12:13 | Outpatient (CLI) | payer OTHER, SELFPAY ==
--- NOTE | 2022-11-13 12:00 | USCV_ITS ---
Fito Au Age: 72 Gender: M : 1950 Exam Date: 11/13/2022 12:56 Ordering Phys: Nuha Connell MD ([email or web address]) Technologist: [place]am [place] [facility] [place]ication: as BP: 150 / 80 HR: 57 Rhythm: Sinus Technical Quality: Adequate MEASUREMENTS (Male / Female) Normal Values 2D ECHO LV Diastolic Diameter PLAX 3.9 cm 4.2 - 5.9 / 3.9 - 5.3 cm LV Systolic Diameter PLAX 2.8 cm IVS Diastolic Thickness 1.2 cm 0.6 - 1.0 / 0.6 - 0.9 cm IVS Systolic Thickness 1.8 cm LVPW Diastolic Thickness 1.6 cm 0.6 - 1.0 / 0.6 - 0.9 cm LVPW Systolic Thickness 2.0 cm LVOT Diameter 2.0 cm LV Ejection Fraction 2D Teich 54.9 % LV Ejection Fraction MOD 2C 75.8 % LV Ejection Fraction 2C AL 76.1 % LA Diameter 5.3 cm Aorta at Sinotubular Diameter 2.4 cm M-MODE Aortic Annulus Diameter 3.8 cm LA Ao Ratio MM 1.4 MV E Point Septal Separation 0.7 cm DOPPLER AV Peak Velocity 303.0 cm/s LVOT Peak Velocity 98.0 cm/s AV Area Cont Eq vti 1.3 cm squared AV Area Cont Eq pk 1.0 cm squared MV Area PHT 2.5 cm squared Mitral E to A Ratio 0.9 MV E' Velocity 44.0 cm/s Mitral E to MV E' Ratio 11.8 Mitral E to LV E' Lateral Ratio 9.3 Mitral E to LV E' Septal Ratio 16.5 TR Peak Velocity 222.7 cm/s TR Peak Gradient 19.8 mmHg RV Acceleration Time 0.1 s FINDINGS Left Ventricle Normal left ventricular size and systolic function, EF 73 %. Moderate left ventricular hypertrophy. No regional wall motion abnormalities. Grade II/IV diastolic dysfunction, moderately elevated filling pressures. Right Ventricle The right ventricle is normal in size and function. Right Atrium The right atrium is normal in size. Left Atrium Moderately increased left atrial size. Mitral Valve Thickened mitral valve. Mild mitral annular calcification. Moderate calcification in the anterior mitral leaflet.mild mitral valve regurgitation. Aortic Valve Moderate aortic valve stenosis, mean gradient 18.3 mmHg, FRANCES 1.3 cm squared. Moderate aortic valve calcification. Peak velocity of 3.06 m/s with a peak gradient of 37 and a mean gradient of 18 mmHg. Tricuspid Valve Trace tricuspid valve regurgitation. Pulmonic Valve No gross abnormalities noted Pericardium No pericardial effusion. Aorta Normal aortic annulus size. IVC Normal inferior vena cava. CONCLUSIONS Normal left ventricular size and systolic function, EF 73 %. Moderate left ventricular hypertrophy. No regional wall motion abnormalities. Grade II/IV diastolic dysfunction, moderately elevated filling pressures. Moderately increased left atrial size. Moderate aortic valve stenosis, mean gradient 18.3 mmHg, FRANCES 1.3 cm squared. Peak velocity of 3.06 m/s with a peak gradient of 37 and a mean gradient of 18 mmHg..Moderate calcification in the anterior mitral leaflet Trace tricuspid valve regurgitation. Estimated pulmonary artery peak systolic pressure of 20 mmHg Thickened mitral valve. Mild mitral annular calcification. Moderate calcification in the anterior mitral leaflet.mild mitral valve regurgitation. There is no pericardial effusion. There are no intracardiac masses. Compared to the study from 03/20/2022, there may not be a significant change Dr Nuha Connell MD [facility] (Electronically Signed) Final Date: 17 November 2022 07:53 S
== END 2022-11-13 12:14 | disposition home or self-care (01) ==
PROVIDERS: PCP Internal Medicine; Visit Provider Internal Medicine Cardiovascular Disease
DX: R06.09 Other forms of dyspnea (principal); I35.0 Nonrheumatic aortic (valve) stenosis; I05.9 Rheumatic mitral valve disease, unspecified
CPT/HCPCS: 93306

== ENCOUNTER 2023-06-20 19:17 | Emergency (ER) | payer OTHER, SELFPAY ==
[2023-06-20 19:26] VITALS: BP 208/76; PULSE 99; RESP 16; TEMP 38.2; O2SAT 95; BMI 33.7
[2023-06-20 21:02] VITALS: BP 170/53; RESP 17; O2SAT 100
--- NOTE | 2023-06-20 21:12 | XRR_ITS ---
PROCEDURE INFORMATION: Exam: XR Chest Exam date and time: 06/20/2023 9:17 PM Age: 72 years old Clinical indication: Patient HX: Fever of unknown origin TECHNIQUE: Imaging protocol: Radiologic exam of the chest. Views: 1 view. COMPARISON: CR XR chest 1V portable [id number] 03/20/2022 8:20 AM FINDINGS: Lungs: No consolidative pulmonary infiltrates are noted. Pleural spaces: No pleural effusion. No pneumothorax. Heart/Mediastinum: Mild cardiomegaly is noted. Mediastinal surgical clips are noted, consistent with previous CABG. Bones/joints: Median sternotomy noted. XR/XR chest 1V portable [id number] IMPRESSION: 1. Mild cardiomegaly is noted. 2. No acute abnormality demonstrated. 3. There is no interval change from the prior examination.
[2023-06-20] MEDS: acetaminophen 500 mg Tablet 1000 MG PO (21:20)
[2023-06-20] MEDS: tamsulosin 0.4 mg Capsule PO (21:20)
[2023-06-20] MEDS: hyDRALAzine 25 mg Tablet 50 MG PO (21:21)
[2023-06-20] MEDS: metoprolol tartrate 50 mg Tablet PO (21:22)
[2023-06-20 21:56] LABS: Basophils % 0.2 %; Eosinophils % 0.2 %; Hematocrit 44.3 % (37-53); Lymphocytes # 0.4 10^3/uL (0.8-4.8); Lymphocytes % 4.2 %; Mean Corpuscular HGB Conc 33.2 g/dL (30-55); Mean Corpuscular Hemoglobin 30.2 pg (27-33); Mean Platelet Volume 9.7 fL (7.4-10.4); Monocytes # 0.7 10^3/uL (0.2-0.9); Monocytes % 7.1 %; Neutrophils % 87.9 %; Nucleated Red Blood Cells % 0 %; Platelet Count 143 10^3/cmm (157-399); Red Blood Count 4.87 10^6/uL (3.85-5.65); Red Cell Distribution Width 13.7 % (12.1-15.1)
[2023-06-20 21:59] LABS: Add Urine Microscopic? YES; Bilirubin Urine Neg (Negative); Blood Urine 2+ (Negative); Glucose Urine UA Norm (Normal); Ketones Urine Negative (Negative); Leukocyte Esterase Urine 2+ (Negative); Nitrate Urine Negative (Negative); Protein Urine Trace (Negative); Urine Appearance SL Hazy (CLEAR); Urine Color Yellow (Yellow); Urobilinogen Urine 1 mg/dL (Negative); pH Urine 5 (5-7)
[2023-06-20 22:11] LABS: Add Urine Culture? Yes; Amorphous Sediment Urine 1+ /hpf; Bacteria Urine TRACE /hpf; Squamous Epithelial Cell Urine 0-4 /hpf (0-5); WBC Urine 15-25 /hpf (0-5)
[2023-06-20 22:16] LABS: Alanine Aminotransferase 15 U/L (0-41); Albumin Level 4.2 g/dL (3.5-5.2); Alkaline Phosphatase 73 U/L (40-130); Anion Gap 14.8 (5-19); Aspartate Amino Transferase 15 U/L (0-40); Blood Urea Nitrogen 14 mg/dL (8-23); C Reactive Protein 92.9 mg/L (0.0-4.9); Calcium 9.2 mg/dL (8.5-10.5); Carbon Dioxide 24 mmol/L (22-29); Chloride 102 mmol/L (98-107); Globulin 3.2 g/dL (1.3-4.6); Glucose 147 mg/dL (65-115); Osmolality Calculated 287 mOsm/kg (285-295); Potassium 3.8 mmol/L (3.5-5.1); Sodium 137 mmol/L (136-145); Total Bilirubin 0.5 mg/dL (0.15-1.2); Total Protein 7.4 g/dL (6.6-8.7)
--- NOTE | 2023-06-20 22:23 | W.ED.FEVER ---
HPI - Fever General: Chief Complaint: Fever Stated Complaint: fever,chills, Time Seen by Provider: 06/20/23 20:34 History of Present Illness: 72-year-old male who has not been feeling well for the last couple of days. He is run a fever on and off, but all day today. This is despite taking ibuprofen. He says that he had a mild headache otherwise. No real symptoms otherwise. He states that he finished antibiotics 5 days ago for an infected tooth on the bottom right side. He supposed to have it pulled sometime in the near future. He notes that its not hurting anymore. Temperatures been as high as 103 at home. It is 100.8 currently. He is hypertensive. He did not take his nighttime medication prior to arrival. Associated symptoms: Reports abdominal pain (2 days ago), chills, headache(s) and nausea; Deny chest pain, diarrhea or vomiting Review of Systems Const: Reports: fever(s), chills and body aches Eyes: Denies: change in vision ENMT: Denies: throat pain Card: Denies: chest pain Resp: Denies: dyspnea, productive cough or non-productive cough GI: Reports: abdominal pain (2 days ago) and nausea; Denies: vomiting or diarrhea Musc: Denies: neck pain or back pain Neuro: Reports: headache(s); Denies: weakness in extremities PFS ED PFSH: Medical History BPH (benign prostatic hyperplasia) CAD (coronary artery disease) CHF (congestive heart failure) Diabetes mellitus type 2 in nonobese History of GA (myocardial infarction) HTN (hypertension) Hyperlipidemia Palpitations Surgical History S/P CABG (coronary artery bypass graft) S/P knee surgery Family History Father CAD (coronary artery disease), Onset Age: 70 from GA age 83 Mother CAD (coronary artery disease) in her 80s Stroke Hypertension Other Dementia Hyperlipidemia Denies family history of Diabetes Clotting disorder Chronic kidney disease (CKD) Suicide Anesthesia complication Bleeding disorder Family history of premature coronary artery disease Lung disease Cancer Social History (Reviewed 06/20/23 @ 22:27 by ERLIN Daley Smoking and tobacco/nicotine status: former use of tobacco/nicotine Alcohol intake: current Alcohol intake frequency: few times a week Alcohol type: beer Substance/Drug Use: never Physical Exam Const: COMMON NORMALS: no acute distress GENERAL APPEARANCE: cooperative; not ill appearing and not frail appearing HENMT: COMMON NORMALS: normocephalic, atraumatic and Normal external nose present HEAD & SCALP: normocephalic and atraumatic FACE & SINUS: normal facial exam and face symmetric NOSE: Normal external nose present Eye: COMMON NORMALS: Equal, round and reactive pupils present and EOMs intact bilaterally PUPIL: Yes Equal, round and reactive pupils present Neck/C-Spine: GENERAL: Yes trachea midline Chest: CHEST: Yes Symmetrical chest wall rise Resp: COMMON NORMALS: normal respiratory effort, No retractions, No use of accessory muscles and clear to auscultation bilaterally AUSCULTATION: clear to auscultation bilaterally Cardio: COMMON NORMALS: regular rate and regular rhythm RATE: regular rate RHYTHM: regular rhythm GI: COMMON NORMALS: Normal to inspection, nondistended, normoactive bowel sounds present Extremity: COMMON NORMALS: no pedal edema Neuro: BRYAN COMA SCALE: document GCS findings Bryan coma scale eye opening: Spontaneous Bryan coma scale verbal response: Orientated Henderson coma scale motor response: Obey commands Henderson coma scale total score: 15 SENSORY EXAM: Yes extremities (intact) Psych: COMMON NORMALS: speech normal SPEECH: Yes normal speech Skin: COMMON NORMALS: no rashes or lesions noted GENERAL SKIN EXAM: no rashes or lesions noted Course Vital Signs: Vital signs: Vital Signs Temperature 100.8 F H 06/20/23 19:26 Pulse Rate 99 06/20/23 19:26 Respiratory Rate 17 06/20/23 22:55 Blood Pressure 170/53 06/20/23 22:55 Pulse Oximetry 100 06/20/23 22:55 Oxygen Delivery Me thod Room Air 06/20/23 21:02 MDM - Fever Medical Decision Making 72-year-old male with a fever. Minimal symptoms otherwise. White blood cell count is 9.9. CRP however is 93. Lactic acid is 1. BMP is not remarkable. Patient has 2+ leukocyte Estrace with 15-25 whites in his urine. Likely the cause of his fever. He is given antibiotics here, and for home. Lab Data 06/20/23 21:06/20/23 21: Radiology Impressions Chest X-Ray 06/20/23 21:12 IMPRESSION: 1. Mild cardiomegaly is noted. 2. No acute abnormality demonstrated. 3. There is no interval change from the prior examination. Laboratory Results WBC 9.90 10^3/uL (3.29-11.43) 06/20/23: RBC 4.87 10^6/uL (3.85-5.65) 06/20/23: Hgb 14.70 g/dL (11.27-16.99) 06/20/23: Hct 44.3 % (37-53) 06/20/23: MCV 91.0 fl (82-101) 06/20/23: MCH 30.2 pg (27-33) 06/20/23: MCHC 33.2 g/dL (30-55) 06/20/23: RDW 13.7 % (12.1-15.1) 06/20/23: Plt Count 143 10^3/cmm (157-399) L 06/20/23: MPV 9.7 fL (7.4-10.4) 06/20/23: Neut % (Auto) 87.9 % 06/20/23: Lymph % (Auto) 4.2 % 06/20/23: [place] % (Auto) 7.1 % 06/20/23: Eos % (Auto) 0.2 % 06/20/23: Baso % (Auto) 0.2 % 06/20/23: Neut # (Auto) 8.70 10^3/uL (1.8-7.7) H 06/20/23: Lymph # (Auto) 0.4 10^3/uL (0.8-4.8) L 06/20/23: Whiteside # (Auto) 0.7 10^3/uL (0.2-0.9) 06/20/23: Eos # (Auto) 0.0 10^3/uL (0.0-0.8) 06/20/23: Baso # (Auto) 0.0 10^3/uL (0.0-0.1) 06/20/23 21: Nucleated RBC % (auto) 0 % 06/20/23 21: Nucleated RBCs # 0.0 /100WBC 06/20/23 21: Sodium 137 mmol/L (136-145) 06/20/23 21: Potassium 3.8 mmol/L (3.5-5.1) 06/20/23 21: Chloride 102 mmol/L (98-107) 06/20/23 21: Carbon Dioxide 24 mmol/L (22-29) 06/20/23 21: Anion Gap 14.8 (5-19) 06/20/23 21: BUN 14 mg/dL (8-23) 06/20/23 21: Creatinine 1.0 mg/dL (0.7-1.2) 06/20/23 21: GFR Calculation Not Reportable 06/20/23: Glucose 147 mg/dL (65-115) H 06/20/23 21: Calculated Osmolality 287 mOsm/kg (285-295) 06/20/23: Lactic Acid 1.0 mmol/L (0.5-2.2) 06/20/23: Calcium 9.2 mg/dL (8.5-10.5) 06/20/23: Total Bilirubin 0.5 mg/dL (0.15-1.2) 06/20/23 21: AST 15 U/L (0-40) 06/20/23 21: ALT 15 U/L (0-41) 06/20/23 21: Alkaline Phosphatase 73 U/L (40-130) 06/20/23 21: C-Reactive Protein 92.9 mg/L (0.0-4.9) H 06/20/23 21: Total Protein 7.4 g/dL (6.6-8.7) 06/20/23 21: Albumin 4.2 g/dL (3.5-5.2) 06/20/23 21: Globulin 3.2 g/dL (1.3-4.6) 06/20/23 21: Urine Color Yellow (Yellow) 06/20/23 21: Urine Appearance Sl hazy (CLEAR) A 06/20/23 21:20 Urine pH 5 (5-7) 06/20/23 21:20 Ur Specific [place] 1.020 (1.005-1.030) 06/20/23 21:20 Urine Protein Trace (Negative) 06/20/23 21:20 Urine Glucose (UA) Norm (Normal) 06/20/23 21:20 Urine Ketones Negative (Negative) 06/20/23 21:20 Urine Blood 2+ (Negative) H 06/20/23 21:20 Urine Nitrate Negative (Negative) 06/20/23 21:20 Urine Bilirubin Neg (Negative) 06/20/23 21:20 Urine Urobilinogen 1 mg/dL (Negative) H 06/20/23 21:20 Ur Leukocyte Esterase 2+ (Negative) H 06/20/23 21:20 Urine RBC 5-10 /hpf (0-2) H 06/20/23 21:20 Urine WBC 15-25 /hpf (0-5) H 06/20/23 21:20 Ur Squamous Epith Cells 0-4 /hpf (0-5) H 06/20/23 21:20 Amorphous Sediment 1+ /hpf 06/20/23 21:20 Urine Bacteria Trace /hpf (NONE) 06/20/23 21:20 All radiology interpretation(s) finalized by discharge Discharge Plan Discharge Patient Disposition: Home Clinical Impression: Urinary tract infection Condition: Stable Prescriptions: New cefdinir 300 mg capsule 300 mg PO BID 10 Days Qty: 20 0RF No Action isosorbide mononitrate 60 mg tablet extended release 24 hr 60 mg PO DAILY Qty: 90 3RF apixaban 5 mg tablet 5 mg PO BID Qty: 180 3RF hydralazine 50 mg tablet 75 mg PO TID Qty: 270 3RF metoprolol tartrate 50 mg tablet 50 mg PO BID Qty: 60 0RF Rx Instructions: Make follow-up for further refills tamsulosin 0.4 mg capsule 0.4 mg PO BEDTIME simvastatin 40 mg tablet 40 mg PO BEDTIME amlodipine 10 mg tablet 10 mg PO QAM losartan 100 mg tablet 100 mg PO QAM Rx Instructions: Make follow-up for further refills Discharge Orders: Discharge ED (Routine); Ordered 06/20/23 Ordered By: David Mejia Referrals: Sacha Smith DO [Primary Care Provider] - Patient Instructions: Urinary Tract Infection in Men (ED), Opioid Safety, Pain Management Activity Restrictions/Additional Instructions: Watch your fever closely. Treat with Tylenol or ibuprofen up to every 3 hours alternating doses if needed. Antibiotics as directed. Return for vomiting liquids or medications, worsening mental status, lethargy, inability to control fever despite 2-3 more doses of antibiotics, other concerning symptoms. Coding Level of Care Code ED Driver/Refuse Collector for Catalino King
[2023-06-20] MEDS: cefdinir 300 MG CAPSULE PO (22:54)
[2023-06-20 22:55] VITALS: BP 170/53; RESP 17; O2SAT 100
[2023-06-21 01:25] LABS: Adenovirus Not Detected (NOT DETECT); Chlamydia Pneumoniae Not Detected (NOT DETECT); Coronavirus 229E,HKU1,NL63,OC4 Not Detected (NOT DETECT); Human Metapneumovirus Not Detected (NOT DETECT); Human Rhinovirus/Enterovirus Not Detected (NOT DETECT); Influenza A Not Detected (NOT DETECT); Influenza A H1 Not Detected (NOT DETECT); Influenza A H1-2009 Not Detected (NOT DETECT); Influenza A H3 Not Detected (NOT DETECT); Influenza B Not Detected (NOT DETECT); Mycoplasma Pneumoniae Not Detected (NOT DETECT); Parainfluenza Virus Type 1 Not Detected (NOT DETECT); Parainfluenza Virus Type 2 Not Detected (NOT DETECT); Parainfluenza Virus Type 3 Not Detected (NOT DETECT); Parainfluenza Virus Type 4 Not Detected (NOT DETECT); Respiratory Syncytial Virus A Not Detected (NOT DETECT); Respiratory Syncytial Virus B Not Detected (NOT DETECT); SARS-COV-2 Not Detected (NOT DETECT)
== END 2023-06-20 22:57 | disposition home or self-care (01) ==
PROVIDERS: Emergency Provider Emergency Medicine; PCP Internal Medicine
DX: N39.0 Urinary tract infection, site not specified (principal); I25.10 Atherosclerotic heart disease of native coronary artery without angina pectoris; I11.0 Hypertensive heart disease with heart failure; I50.9 Heart failure, unspecified; E11.9 Type 2 diabetes mellitus without complications; I25.2 Old myocardial infarction; E78.5 Hyperlipidemia, unspecified; Z95.1 Presence of aortocoronary bypass graft; Z87.891 Personal history of nicotine dependence
CPT/HCPCS: 36415; 71045; 80053; 81001; 83605; 85025; 86140; 87086; 87486; 87581; 87633; 99284

== ENCOUNTER 2023-12-28 07:38 | Observation (INO) | payer OTHER, SELFPAY ==
[2023-12-28] VITALS (9 sets, daily range): BP systolic 98–141; BP diastolic 42–85; PULSE 82–165; RESP 16–27; TEMP 36.7–37.3; O2SAT 96–99; BMI 33.7
--- NOTE | 2023-12-28 07:44 | XR_ITS ---
WS: [id number] PORTABLE CHEST HISTORY: dyspnea/cough COMPARISON: 06/20/2023 Prior CABG. Very mild pulmonary hyperexpansion. Imaging performed in the lordotic projection. No pneumonia. Annmarie l vasculature. No pleural effusion or pneumothorax. Cardiac size: Mildly enlarged cardiac silhouette. Mediastinum/Aorta: Mild atherosclerosis aorta. No osseous abnormality seen. XR/XR chest 1V portable [id number] IMPRESSION: Prior CABG. No pneumonia.
--- NOTE | 2023-12-28 07:44 | ECG_ITS ---
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 Measurements Intervals [place] Rate: 158 P: 0 UT: 0 QRS: 36 QRSD: 86 T: 47 QT: 280 QTc: 454 Interpretive Statements ATRIAL FLUTTER WITH RAPID VENTRICULAR RESPONSE Electronically Signed On 12-28-2023 16:49:51 CDT by Betito Shields M.D. [id number]
--- NOTE | 2023-12-28 07:55 | ED_ITS ---
HPI - Arrhythmia/Palpitations 2 General: Chief Complaint: Arrhythmia/Palpitations Stated Complaint: Afib, sent by Martínez Meade Time Seen by Provider: 12/28/23 07:42 Source: patient and family Mode of arrival: ambulatory History of Present Illness: 73-year-old male presents emergency room from local urgent care clinic with A- fib with RVR. Patient has a known history of A-fib he is currently on metoprolol and Eliquis he has been taking all his medications regularly he has not had any recent dose changes. The last 3 days he has noted his temp with a Tmax of 102. He had some lower abdominal suprapubic discomfort but no real dysuria urgency or frequency no flank pain no hematuria. He states his urine has seemed abnormal. He denies any shortness of breath or productive cough. No chest pain at this time just a rapid heart rate is a history of aortic valve stenosis as well as congestive heart failure and known history of intermittent atrial fibrillation coronary artery disease and diabetes mellitus. No family members or household contacts with been ill recently. MD complaint: rapid heart beat Onset (ago): day(s) (3) Arrhythmia history: atrial fibrillation Associated symptoms: Deny anxiety, cough, diaphoresis, muscle cramps, nausea, paresthesias, pre-syncope, sense of impending doom, short of breath, syncope or vomiting Review of Systems 2 Const: Denies: diaphoresis Card: Reports: palpitations and irregular heart rhythm; Denies: chest pain, edema, swelling of feet/ankles, syncope or pre-syncope Resp: Reports: dyspnea GI: Denies: nausea or vomiting : Denies: dysuria, urinary frequency or urinary urgency Musc: Denies: muscle cramps Skin/Breast: Denies: rash Psych: Denies: anxiety PFSH ED 2 PFSH: Medical History Diabetes mellitus type 2 in nonobese BPH (benign prostatic hyperplasia) Hyperlipidemia CAD (coronary artery disease) History of [place] (myocardial infarction) Palpitations HTN (hypertension) CHF (congestive heart failure) Surgical History S/P knee surgery S/P CABG (coronary artery bypass graft) Family History Father CAD (coronary artery disease), Onset Age: 70 from [place] age 83 Mother CAD (coronary artery disease) in her 80s Stroke Hypertension Other Dementia Hyperlipidemia Denies family history of Diabetes Clotting disorder Chronic kidney disease (CKD) Suicide Anesthesia complication Bleeding disorder Family history of premature coronary artery disease Lung disease Cancer Social History Smoking and tobacco/nicotine status: former use of tobacco/nicotine Alcohol intake: current Alcohol intake frequency: few times a week Alcohol type: beer Substance/Drug Use: never Physical Exam 2 Const: GENERAL APPEARANCE: cooperative and comfortable O RIENTATION/CONSCIOUSNESS: Yes awake, Yes oriented to person, Yes oriented to place and Yes oriented to time HENMT: COMMON NORMALS: normocephalic, atraumatic and hearing grossly normal bilaterally HEAD & SCALP: normocephalic and atraumatic Resp: COMMON NORMALS: normal respiratory effort, No retractions, No use of accessory muscles and clear to auscultation bilaterally AUSCULTATION: clear to auscultation bilaterally Cardio: COMMON NORMALS: No murmurs present (Cardio) RATE: tachycardic R HYTHM: abnormal rhythm irregularly irregular GI: COMMON NORMALS: Soft to palpation and No hepatosplenomegaly present A USCULTATION: Yes normoactive bowel sounds PALPATION: Yes Soft to palpation, No Tenderness to palpation present (GI), No Guarding due to palpation present (GI) and Yes No hepatosplenomegaly present Extremity: COMMON NORMALS: normal to inspection, capillary refill normal, no clubbing, cyanosis or edema, no calf tenderness and no pedal edema Neuro: SENSORIUM/ORIENTATION: Yes oriented to person, Yes oriented to place and Yes oriented to time Skin: COMMON NORMALS: no rashes or lesions noted GENERAL SKIN EXAM: no rashes or lesions noted Course 2 Vital Signs: Vital signs: Vital Signs Temperature 98.1 F 12/28/23 07:49 Pulse Rate 86 12/28/23 08:31 Respiratory Rate 16 12/28/23 08:31 Blood Pressure 98/48 12/28/23 08:31 Pulse Oximetry 96 12/28/23 08:31 Oxygen Delivery Me thod Room Air 12/28/23 08:31 MDM - Arrhythmia/Palpitations Medical Decision Making A-fib/flutter responded well to the Cardizem but still has underlying flutter. BNP markedly elevated. No signs of decompensated heart failure. Will admit to CICU continue IV Cardizem discussed with Dr. Coats orders written Medical Records I reviewed the patient's medical records. Lab Data I reviewed the patient's lab results. 12/28/23 08:00 12/28/23 08:00 Radiology Impressions Chest X-Ray 12/28/23 07:44 IMPRESSION: Prior CABG. No pneumonia. Laboratory Results WBC 3.22 10^3/uL (3.29-11.43) L 12/28/23 08:00 RBC 5.58 10^6/uL (3.85-5.65) 12/28/23 08:00 Hgb 16.50 g/dL (11.27-16.99) 12/28/23 08:00 Hct 50.8 % (37-53) 12/28/23 08:00 MCV 91.0 fl (82-101) 12/28/23 08:00 MCH 29.6 pg (27-33) 12/28/23 08:00 MCHC 32.5 g/dL (30-55) 12/28/23 08:00 RDW 14.5 % (12.1-15.1) 12/28/23 08:00 Plt Count 94 10^3/cmm (157-399) L 12/28/23 08:00 MPV 10.9 fL (7.4-10.4) H 12/28/23 08:00 Neut % (Auto) 66.2 % 12/28/23 08:00 Lymph % (Auto) 18.3 % 12/28/23 08:00 Caroline % (Auto) 14.9 % 12/28/23 08:00 Eos % (Auto) 0.0 % 12/28/23 08:00 Baso % (Auto) 0.3 % 12/28/23 08:00 Neut # (Auto) 2.13 10^3/uL (1.8-7.7) 12/28/23 08:00 Lymph # (Auto) 0.6 10^3/uL (0.8-4.8) L 12/28/23 08:00 Caroline # (Auto) 0.5 10^3/uL (0.2-0.9) 12/28/23 08:00 Eos # (Auto) 0.0 10^3/uL (0.0-0.8) 12/28/23 08:00 Baso # (Auto) 0.0 10^3/uL (0.0-0.1) 12/28/23 08:00 Nucleated RBC % (auto) 0 % 12/28/23 08:00 Nucleated RBCs # 0.0 /100WBC 12/28/23 08:00 Sodium 141 mmol/L (136-145) 12/28/23 08:00 Potassium 4.7 mmol/L (3.5-5.1) 12/28/23 08:00 Chloride 102 mmol/L (98-107) 12/28/23 08:00 Carbon Dioxide 25 mmol/L (22-29) 12/28/23 08:00 Anion Gap 18.7 (5-19) 12/28/23 08:00 BUN 22 mg/dL (8-23) 12/28/23 08:00 Creatinine 1.4 mg/dL (0.7-1.2) H 12/28/23 08:00 GFR Calculation Not Reportable 12/28/23 08:00 Glucose 140 mg/dL (65-115) H 12/28/23 08:00 Calculated Osmolality 298 mOsm/kg (285-295) H 12/28/23 08:00 Lactic Acid 1.6 mmol/L (0.5-2.2) 12/28/23 08:00 Calcium 8.8 mg/dL (8.5-10.5) 12/28/23 08:00 Magnesium 1.9 mg/dL (1.7-2.3) 12/28/23 08:00 Total Bilirubin 0.5 mg/dL (0.15-1.2) 12/28/23 08:00 AST 29 U/L (0-40) 12/28/23 08:00 ALT 20 U/L (0-41) 12/28/23 08:00 Alkaline Phosphatase 68 U/L (40-130) 12/28/23 08:00 Troponin T Baseline 42 ng/L (0-15) H 12/28/23 08:00 NT-Pro-B Natriuret Pep 8943 pg/mL (0-125) H 12/28/23 08:00 Total Protein 7.2 g/dL (6.6-8.7) 12/28/23 08:00 Albumin 4.3 g/dL (3.5-5.2) 12/28/23 08:00 Globulin 2.9 g/dL (1.3-4.6) 12/28/23 08:00 TSH 3.30 uIU/mL (0.27-4.20) 12/28/23 08:00 All radiology interpretation(s) finalized by discharge Discharge Plan Discharge Patient Disposition: Admitted As Inpatient Clinical Impression: Atrial fibrillation/flutter Condition: Stable Prescriptions: No Action metoprolol tartrate 50 mg tablet 50 mg PO BID Qty: 60 0RF Rx Instructions: Make follow-up for further refills apixaban 5 mg tablet 5 mg PO BID Qty: 180 3RF hydralazine 50 mg tablet 75 mg PO TID Qty: 270 3RF isosorbide mononitrate 60 mg tablet extended release 24 hr See Rx Instructions .ROUTE .COMPLEX Qty: 90 0RF Dose Instruction: TAKE 1 TABLET BY MOUTH EVERY DAY Rx Instructions: TAKE 1 TABLET BY MOUTH EVERY DAY tamsulosin 0.4 mg capsule 0.4 mg PO BEDTIME simvastatin 40 mg tablet 40 mg PO BEDTIME amlodipine 10 mg tablet 10 mg PO QAM losartan 100 mg tablet 100 mg PO QAM Rx Instructions: Make follow-up for further refills Referrals: Sacha Smith DO [Primary Care Provider] - Coding Level of Care Code ED Operations Management Trainee for Catalino King
[2023-12-28] MEDS: dilTIAZem 100 MG in sodium chloride 0.9% (add-van) 100 ML IV ×2 (08:01→22:03)
[2023-12-28] MEDS: dilTIAZem 5 mg/mL SDV 5 mL 20 MG IVP (08:01)
[2023-12-28 08:19] LABS: Basophils % 0.3 %; Hematocrit 50.8 % (37-53); Lymphocytes # 0.6 10^3/uL (0.8-4.8); Lymphocytes % 18.3 %; Mean Corpuscular HGB Conc 32.5 g/dL (30-55); Mean Corpuscular Hemoglobin 29.6 pg (27-33); Mean Platelet Volume 10.9 fL (7.4-10.4); Monocytes # 0.5 10^3/uL (0.2-0.9); Monocytes % 14.9 %; Neutrophils # 2.13 10^3/uL (1.8-7.7); Neutrophils % 66.2 %; Nucleated Red Blood Cells % 0 %; Platelet Count 94 10^3/cmm (157-399); Red Blood Count 5.58 10^6/uL (3.85-5.65); Red Cell Distribution Width 14.5 % (12.1-15.1); White Blood Count 3.22 10^3/uL (3.29-11.43)
--- NOTE | 2023-12-28 08:24 | PC.NURSE ---
PATIENT TO NURSES STATION TO SAY PATIENT FEELING DIZZY AND LIKE HE'S GOING TO PASS OUT. PATIENT BP 70S/40S. PATIENT SITTING AT EDGE OF BED WAS REPOSITIONED TO SEMI-FOWLERS AND PLACED IN [place]. PATIENT BP RETAKEN 103/65. PROVIDER NOTIFIED. STATED TO KEEP CARDIZEM AT 5 AND GIVE 500 BOLUS.
[2023-12-28 08:29] LABS: Lactic Sepsis W/Reflex 1.6 mmol/L (0.5-2.2)
[2023-12-28 08:31] LABS: Troponin(5th) Baseline 42 ng/L (0-15)
[2023-12-28] MEDS: sodium chloride 0.9% 500 ML 999 ML IV (08:35)
[2023-12-28 08:44] LABS: Alanine Aminotransferase 20 U/L (0-41); Albumin Level 4.3 g/dL (3.5-5.2); Alkaline Phosphatase 68 U/L (40-130); Anion Gap 18.7 (5-19); Aspartate Amino Transferase 29 U/L (0-40); Blood Urea Nitrogen 22 mg/dL (8-23); Calcium 8.8 mg/dL (8.5-10.5); Carbon Dioxide 25 mmol/L (22-29); Chloride 102 mmol/L (98-107); Creatinine Clr Calc Pharmacy 56.7681; Globulin 2.9 g/dL (1.3-4.6); Glucose 140 mg/dL (65-115); Magnesium 1.9 mg/dL (1.7-2.3); NT Pro B Type Natriuretic Pept 8943 pg/mL (0-125); Osmolality Calculated 298 mOsm/kg (285-295); Potassium 4.7 mmol/L (3.5-5.1); Sodium 141 mmol/L (136-145); Total Bilirubin 0.5 mg/dL (0.15-1.2); Total Protein 7.2 g/dL (6.6-8.7)
--- NOTE | 2023-12-28 09:34 | P.HP_ITS ---
Providers/Chief Complaint 2 Admitting Physician: Kody Lyles MD Primary Care Provider: Sacha Smith DO Chief [facility] History of Present Illness Fito Au is a 73 year old male sent over from [facility] with concerns of elevated heart rates usually. Currently his temperature was up to 102 degrees at some point over the weekend. believes he has been running intermittent temperatures since Wednesday. He has not really had many symptoms. He has not been short of breath, cough, dysuria, abdominal pain, nausea vomiting, or muscle aches. He has had palpitations on occasion. He reports past history of tick fever. No ill family members. In the emergency department, he received a Cardizem drip and some fluids. Blood pressure was a little soft and he was dizzy with standing at 1 point. He denies any chest pain. He cannot recall any tick bites but [place] Review of Systems 2 General: Reports: 10 or more systems reviewed and unremarkable except in HPI and below Card: Reports: palpitations; Denies: chest pain Resp: Denies: dyspnea GI: Denies: abdominal pain, nausea, vomiting, hematochezia or melena Medications/Allergies Home Medications Medication Instructions Recorded Confirmed Last Taken Type metoprolol tartrate 50 mg tablet 50 mg PO BID #60 tabs 10/13/21 03/20/22 03/20/22 Rx amlodipine 10 mg tablet 10 mg PO QAM 03/20/22 03/20/22 03/20/22 History losartan 100 mg tablet 100 mg PO QAM 03/20/22 03/20/22 03/20/22 History simvastatin 40 mg tablet 40 mg PO BEDTIME 03/20/22 03/20/22 03/19/22 History tamsulosin 0.4 mg capsule 0.4 mg PO BEDTIME 03/20/22 03/20/22 03/19/22 History apixaban 5 mg tablet 5 mg PO BID #180 tabs 06/22/23 Unknown Rx hydralazine 50 mg tablet 75 mg (1.5 x 50 mg) PO TID #270 09/09/23 Unknown Rx tabs isosorbide mononitrate 60 mg See Rx Instructions .Route 12/13/23 Unknown Rx tablet,extended release 24 hr .COMPLEX #90 tabs Allergies Allergy/AdvReac Type Severity Reaction Status Date / Time No Known Allergies Allergy Verified 06/20/23 19:26 PFSH Acute 2 PFSH: Medical History Diabetes mellitus type 2 in nonobese BPH (benign prostatic hyperplasia) Hyperlipidemia CAD (coronary artery disease) History of [place] (myocardial infarction) Palpitations HTN (hypertension) CHF (congestive heart failure) Surgical History S/P knee surgery S/P CABG (coronary artery bypass graft) Family History Father CAD (coronary artery disease), Onset Age: 70 from [place] age 83 Mother CAD (coronary artery disease) in her 80s Stroke Hypertension Other Dementia Hyperlipidemia Denies family history of Diabetes Clotting disorder Chronic kidney disease (CKD) Suicide Anesthesia complication Bleeding disorder Family history of premature coronary artery disease Lung disease Cancer Social History Smoking and tobacco/nicotine status: former use of tobacco/nicotine Alcohol intake: current Alcohol intake frequency: few times a week Alcohol type: beer Substance/Drug Use: never Vitals/I&O/Wt Last Vital Signs Temp 98.1 F 12/28/23 07:49 Pulse 86 12/28/23 08:31 Resp 16 12/28/23 08:31 BP 98/48 12/28/23 08:31 Pulse Ox 96 12/28/23 08:31 O2 Del Method Room Air 12/28/23 08:31 Weight last 48 hrs Weight 104.326 kg Physical Exam 2 Narrative: General exam is white male, no distress HEENT: Atraumatic normocephalic. Pupils equally round. Oropharynx clear. Neck is supple no lymphadenopathy thyromegaly Cardiovascular irregular, irregular currently with rate controlled Lungs clear Abdomen is soft. Bowel sounds noted exams deferred Extremities no cyanosis, or edema, cap refill brisk Skin slight abrasion right lateral lower thigh. Neuro no focal deficits Data 12/28/23 08:00 12/28/23 08:00 Other Labs: Leukopenia and lymphopenia is noted Creatinine 1.4 LFTs normal Troponin 42 BNP 8900 Albumin and calcium normal TSH 3.3 which I ordered Chest x-ray which I reviewed demonstrates no infiltrate, prior bypass surgery. A blood culture was ordered I have ordered a respiratory panel, and a tick panel. A&P Assessment and plan (1) Atrial fibrillation with rapid ventricular response: Patient presents with A-fib with RVR/a flutter. He was initiated on a Cardizem drip and is controlling rhythm now Continue his metoprolol Hold Norvasc Addition of diltiazem 30 mg every 6 hours as blood pressure stabilizes Obtain echocardiogram. He has a history of moderate aortic stenosis followed by Dr. Oliva in [place] Hold hydralazine with soft blood pressures Hold ARB (2) Fever: No definitive source of infection is noted currently Check respiratory panel Secondary to lymphopenia, low platelets, significant exposure will start on doxycycline IV Blood culture was drawn Check tick panel Low threshold to start empiric Rocephin but would at least like respiratory panel back prior to doing this. He does not appear septic. (3) Acute kidney injury: Has evidence of acute kidney injury, likely cardiorenal from heart rate. As heart rate is controlled I suspect this will resolve Orally hydrate, do not want to give significant IV fluids considering his elevated BNP and history of significant diastolic heart failure on his last echocardiogram. (4) Elevated troponin: Type II elevation secondary to elevated heart rate Secondary to past history of aortic stenosis check echocardiogram. Serial troponins (5) Diabetes mellitus type 2 in nonobese: Consistent carb diet. I do not believe he is on any medications. Reconcile home med list. (6) CHF (congestive heart failure): Currently appears compensated although BNP is elevated from A-fib with RVR. Continue to monitor closely. Qualifiers: Heart failure type: diastolic Heart failure chronicity: chronic Qualified Code(s): I50.32 - Chronic diastolic (congestive) heart failure Plan Multiple other medical problems as outlined in past medical history Full code Lovenox for DVT prophylaxis Attestations 2 Medical Necessity Statement*: Will require less than 2 midnight stay for evaluation and treatment of A-fib with RVR, and fever currently without source but tickborne disease suspected. Diagnoses Atrial fibrillation with rapid ventricular response I48.91 Fever R50.9 Acute kidney injury N17.9 Elevated troponin R79.89 Diabetes mellitus type 2 in nonobese E11.9 Chronic diastolic congestive heart failure I50.32 Heart failure type: diastolic Heart failure chronicity: chronic Time Spent (min) 53
--- NOTE | 2023-12-28 09:43 | USCV_ITS ---
Fito Au Age: 73 Gender: M : 1950 Exam Date: 12/28/2023 14:31 Ordering Phys: Kody Lyles MD Technologist: Exam [place] [facility] [place] Indication: as BP: 124 / 66 HR: 108 Rhythm: Sinus Technical Quality: Adequate MEASUREMENTS (Male / Female) Normal Values 2D ECHO LV Diastolic Diameter PLAX 4.1 cm 4.2 - 5.9 / 3.9 - 5.3 cm IVS Diastolic Thickness 1.5 cm 0.6 - 1.0 / 0.6 - 0.9 cm IVS Systolic Thickness 2.1 cm LVPW Diastolic Thickness 1.4 cm 0.6 - 1.0 / 0.6 - 0.9 cm LVPW Systolic Thickness 2.4 cm LVOT Diameter 2.0 cm LV Ejection Fraction 2D Teich 46.3 % LV Ejection Fraction MOD 2C 59.3 % LV Ejection Fraction 2C AL 59.3 % LA Diameter 4.3 cm RA Systolic Volume 4C AL 65.4 ml RA Systolic Volume 4C MOD 62.8 ml Aorta at Sinotubular Diameter 3.1 cm M-MODE LA Ao Ratio MM 1.6 AV Cusp Separation MM 1.2 cm DOPPLER AV Peak Velocity 320.0 cm/s LVOT Peak Velocity 80.0 cm/s AV Area Cont Eq vti 0.8 cm squared AV Area Cont Eq pk 0.8 cm squared MV Area PHT 4.2 cm squared Mitral E to A Ratio 3.2 TV Peak Velocity 233.5 cm/s TR Peak Velocity 265.0 cm/s TR Peak Gradient 28.1 mmHg TV Peak E Velocity 117.0 cm/s Right Atrial Pressure 3.0 mmHg Pulmonary Artery Systolic Pressu 31.1 mmHg PV Peak Velocity 120.0 cm/s FINDINGS Left Ventricle Left ventricle is normal in size. LV systolic function is mildly reduced with EF of 40 to 45%. Regional wall motion abnormalities are difficult to assess because of limited visualization. Moderate left venticular hypertrophy. Right Ventricle Normal in size and function Right Atrium Normal in size Left Atrium Normal in size Mitral Valve Mild mitral annular calcification. Mild mitral regurgitation. Aortic Valve Aortic valve is thickened and calcified. Moderate to severe aortic stenosis with mean gradient of 22 mmHg and aortic valve area of 0.8 cm2. Area calculation can be underestimation as poor quality images. Tricuspid Valve Insufficient TR jet to calculate RVSP Pulmonic Valve Not well visualized Pericardium Normal Aorta Normal in size IVC Appears to be normal CONCLUSIONS Technically limited quality echocardiogram because of poor ultrasonic windows. LV systolic function is mildly reduced with EF of 40-45%. Regional wall motion abnormalities are difficult to assess because of limited visualization. Moderate left ventricular hypertrophy seen. Mild mitral regurgitation. Moderate to severe aortic stenosis with mean gradient of 22 mmHg and aortic valve area of 0.8 cm.2. Area calculation can be underestimated as poor quality images Compared to prior echocardiogram from 2022, LV systolic function appears to be reduced and aortic stenosis has progressed. However, EF assessment may not be accurate on current study because of limited quality echo. Recommend limited echo with contrast. Betito Shields MD (Electronically Signed) Final Date: 29 Dec 2023 10:43 S
--- NOTE | 2023-12-28 09:44 | ECG_ITS ---
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 Measurements Intervals [place] Rate: 105 P: 0 TX: 0 QRS: 45 QRSD: 103 T: 172 QT: 348 QTc: 462 Interpretive Statements ATRIAL FLUTTER WITH RAPID VENTRICULAR RESPONSE PROBABLE INFERIOR MYOCARDIAL INFARCTION , OF INDETERMINATE AGE [35 ms Q WAVE IN II/aVF] MODERATE T-WAVE ABNORMALITY, CONSIDER LATERAL ISCHEMIA [-0.1+ mV T-WAVE IN I/aVL/V5/V6] Compared to ECG 12/28/2023 07:47:51 T-wave abnormality now present Possible ischemia now present ST (T wave) deviation no longer present Myocardial infarct finding still present Electronically Signed On 12-28-2023 16:52:12 CDT by Betito Shields M.D. [id number]
--- NOTE | 2023-12-28 10:23 | PC.NURSE ---
PER VERBAL ORDER PER DR. JON, INCREASE CARDIZEM TO 7.5 MG AND WATCH PATIENT BP CAREFULLY DUE TO PREVIOUS HYPOTENSIVE EPISODE.
[2023-12-28 10:24] LABS: Blood Urine Neg (Negative); Glucose Urine UA Norm (Normal); Ketones Urine 1+ (Negative); Protein Urine 2+ (Negative); Urine Appearance Slightly Cloudy (CLEAR); Urine Color Yellow (Yellow); pH Urine 5 (5-7)
[2023-12-28 10:25] LABS: Add Urine Microscopic? YES; Bilirubin Urine 1+ (Negative); Leukocyte Esterase Urine Negative (Negative); Nitrate Urine Negative (Negative); Urobilinogen Urine 1 mg/dL (Negative)
[2023-12-28 10:30] LABS: Troponin 5 2HR 46.48 ng/L (0-15); Troponin 5 2HR Delta 4.48 ABS# (0-10)
[2023-12-28 10:45] LABS: RBC Urine 0-4 /hpf (0-2); WBC Urine 0-4 /hpf (0-5)
[2023-12-28 10:46] LABS: Add Urine Culture? No; Bacteria Urine TRACE /hpf; Hyaline Casts Urine 55-80 /lpf; Mucus Urine 1+ /hpf; Squamous Epithelial Cell Urine 0-4 /hpf (0-5)
[2023-12-28] MEDS: doxycycline 100 MG in sodium chloride 0.9% (plus) 100 ML IV ×2 (11:17→20:56)
[2023-12-28 12:07] LABS: Adenovirus Not Detected (NOT DETECT); Chlamydia Pneumoniae Not Detected (NOT DETECT); Coronavirus 229E,HKU1,NL63,OC4 Not Detected (NOT DETECT); Human Metapneumovirus Not Detected (NOT DETECT); Human Rhinovirus/Enterovirus Not Detected (NOT DETECT); Influenza A Not Detected (NOT DETECT); Influenza A H1 Not Detected (NOT DETECT); Influenza A H1-2009 Not Detected (NOT DETECT); Influenza A H3 Not Detected (NOT DETECT); Influenza B Not Detected (NOT DETECT); Mycoplasma Pneumoniae Not Detected (NOT DETECT); Parainfluenza Virus Type 1 Not Detected (NOT DETECT); Parainfluenza Virus Type 2 Not Detected (NOT DETECT); Parainfluenza Virus Type 3 Not Detected (NOT DETECT); Parainfluenza Virus Type 4 Not Detected (NOT DETECT); Respiratory Syncytial Virus A Not Detected (NOT DETECT); Respiratory Syncytial Virus B Not Detected (NOT DETECT); SARS-COV-2 Not Detected (NOT DETECT)
--- NOTE | 2023-12-28 12:27 | PC.NURSE ---
PER VERBAL ORDER FROM DR. HAM, DECREASE CARDIZEM IV TO 5MG AND IN 15 MINS GIVE PATIENT CARDIZEM PO.
[2023-12-28] MEDS: dilTIAZem 30 mg Tablet PO ×3 (12:51→18:56)
[2023-12-28] MEDS: enoxaparin 40 mg/0.4 mL Syringe SUBCUT (12:52)
--- NOTE | 2023-12-28 13:35 | ECG_ITS ---
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 Measurements Intervals [place] Rate: 109 P: 0 MA: 0 QRS: 27 QRSD: 85 T: 116 QT: 319 QTc: 431 Interpretive Statements ATRIAL FLUTTER WITH RAPID VENTRICULAR RESPONSE Electronically Signed On 12-28-2023 16:51:43 CDT by Betito Shields M.D. [id number]
[2023-12-28 15:35] LABS: Troponin 5 6HR 46.09 ng/L (0-15); Troponin 5 6HR Delta 4.09 ng/L (0-12)
[2023-12-29] VITALS (11 sets, daily range): BP systolic 135–155; BP diastolic 72–99; PULSE 81–127; RESP 17–37; TEMP 36.4–37.3; O2SAT 91–99
[2023-12-29] MEDS: dilTIAZem 60 mg Tablet PO ×4 (00:31→18:52)
[2023-12-29 04:15] LABS: Basophils % 0.5 %; Hematocrit 45.7 % (37-53); Lymphocytes # 0.5 10^3/uL (0.8-4.8); Lymphocytes % 23.7 %; Mean Corpuscular HGB Conc 32.2 g/dL (30-55); Mean Corpuscular Hemoglobin 29.6 pg (27-33); Mean Platelet Volume 11.5 fL (7.4-10.4); Monocytes # 0.4 10^3/uL (0.2-0.9); Monocytes % 16.9 %; Neutrophils # 1.28 10^3/uL (1.8-7.7); Neutrophils % 58.4 %; Nucleated Red Blood Cells % 0 %; Platelet Count 69 10^3/cmm (157-399); Red Blood Count 4.97 10^6/uL (3.85-5.65); Red Cell Distribution Width 14.3 % (12.1-15.1); White Blood Count 2.19 10^3/uL (3.29-11.43)
[2023-12-29 04:43] LABS: Slide Review Slide Review Perform
[2023-12-29 04:44] LABS: Alanine Aminotransferase 24 U/L (0-41); Albumin Level 3.7 g/dL (3.5-5.2); Alkaline Phosphatase 61 U/L (40-130); Anion Gap 16.1 (5-19); Aspartate Amino Transferase 35 U/L (0-40); Blood Urea Nitrogen 20 mg/dL (8-23); Calcium 7.9 mg/dL (8.5-10.5); Carbon Dioxide 22 mmol/L (22-29); Chloride 106 mmol/L (98-107); Creatinine Clr Calc Pharmacy 72.0948; Globulin 2.8 g/dL (1.3-4.6); Glucose 115 mg/dL (65-115); Osmolality Calculated 294 mOsm/kg (285-295); Potassium 4.1 mmol/L (3.5-5.1); Sodium 140 mmol/L (136-145); Total Bilirubin 0.5 mg/dL (0.15-1.2); Total Protein 6.5 g/dL (6.6-8.7)
[2023-12-29 08:23] LABS: Lactate Dehydrogenase 204 U/L (135-225)
--- NOTE | 2023-12-29 08:25 | P.PN_ITS ---
Subjective 2 Subjective: Patient reports he feels okay. Reports he felt a little hot last night but no fever was noted. Highest temperature 99.1. No muscle aches, rash. I did discuss with Dr. Smith today and platelets were in the 140s in October. White blood cell count normal with normal differential. Medications: Reviewed: Yes Vitals/I&O/Wt Last Vital Signs Temp 99.1 F 12/29/23 04:00 Pulse 85 12/29/23 07:30 Resp 20 H 12/29/23 07:30 BP 135/99 12/29/23 07:30 Pulse Ox 94 12/29/23 07:30 O2 Del Method Room Air 12/29/23 07:30 12/28/23 12/29/23 12/29/23 22:59 06:59 14:59 Intake Total 508.333 / 1135.583 Output Total 650 / 650 500 / 1150 Balance -141.667 / 485.583 -500 / -14.417 Weight last 48 hrs Weight 104.496 kg Weight 103.873 kg Weight 104.326 kg Physical Exam 2 Narrative: General exam no distress. Neck is supple no lymphadenopathy thyromegaly Cardiovascular irregular, irregular currently with rate controlled Lungs clear Abdomen is soft. Bowel sounds noted Extremities no cyanosis, or edema, cap refill brisk Data 12/29/23 03:50 12/29/23 03:50 Micro: Microbiology 12/28/23 09:35 Blood Culture - Preliminary Blood SPECIMEN COLLECTED 12/28/23 09:42 Blood Culture - Preliminary Blood SPECIMEN COLLECTED A&P Assessment and plan (1) Atrial fibrillation with rapid ventricular response: Patient presents with A-fib with RVR/a flutter. He was initiated on a Cardizem drip He will continue on his metoprolol Diltiazem p.o. was started and has this has been increased to 60 mg every 6 hours. Cardizem drip has been discontinued. Hold Norvasc, hydralazine, ARB. Hold nitrates. Add nitrates back if blood pressure tolerates. Await echocardiogram (2) Fever: No definitive source of infection is noted currently Respiratory panel negative Secondary to lymphopenia, low platelets, significant exposure will start on doxycycline IV Blood culture was drawn, negative to date Check tick panel drawn and pending (3) Acute kidney injury: Has evidence of acute kidney injury, likely cardiorenal from heart rate. This is improving (4) Elevated troponin: Type II elevation secondary to elevated heart rate Secondary to past history of aortic stenosis check echocardiogram. Serial troponins (5) Diabetes mellitus type 2 in nonobese: Consistent carb diet. I do not believe he is on any medications. (6) CHF (congestive heart failure): Currently appears compensated although BNP is elevated from A-fib with RVR. Continue to monitor closely. Qualifiers: Heart failure type: diastolic Heart failure chronicity: chronic Qualified Code(s): I50.32 - Chronic diastolic (congestive) heart failure Plan Thrombocytopenia, lymphopenia. Some neutropenia today. No evidence of sepsis. Check LDH and haptoglobin although not anemic. Tickborne disease highest on differential and started on doxycycline. Secondary to decreasing platelets at 69,000 today, will hold anticoagulation. SCDs for DVT prophylaxis doubt hydralazine is causing decreased white blood cell count. However, it has been discontinued anyway secondary to blood pressure medication adjustments. Close follow-up with CBC and CMP tomorrow. Multiple other medical problems as outlined in past medical history Full code SCDs for DVT prophylaxis. Anticoagulation held secondary to decreasing platelets Attestations 2 Medical Necessity Statement*: Needs continued hospitalization for decreasing platelets, adjustment of medications for A-fib with RVR, possible tickborne disease Diagnoses Atrial fibrillation with rapid ventricular response I48.91 Fever R50.9 Acute kidney injury N17.9 Elevated troponin R79.89 Diabetes mellitus type 2 in nonobese E11.9 Chronic diastolic congestive heart failure I50.32 Heart failure type: diastolic Heart failure chronicity: chronic Time Spent (min) 23
[2023-12-29] MEDS: doxycycline 100 MG in sodium chloride 0.9% (plus) 100 ML IV ×2 (09:36→21:58)
[2023-12-29] MEDS: metoprolol tartrate 50 mg Tablet PO (09:36)
--- NOTE | 2023-12-29 10:26 | PC.CHAP ---
Pastoral Care Encounter/Spiritual Assessment Type of Contact [] Declined silk worker visit [] Patient/Family/Request visit [] Outpatient visit [] Follow-up visit [] Physician referral [] Code/Alert [] Routine visit [] Staff referral [] Actively dying [] Patient sleeping [] Family support [] [] Out of room [] Palliative care [] [x] Receiving care in room [] Pre-surgical visit [] Trauma [] Long length of stay [] ICU visit [] Other: Relational/Emotional Strength [] Patient feels connected with others/family/visitors/staff [] Distress [] Loneliness/isolation [] Abandonment Spirituality of Patient [] Person of Vee [] Attends Taoist of their Vee [] Believes in Prayer [] Reads Bible or Alevism materials [] There are Spiritual issues to be addressed Manager Card Interventions [x] Prayer [] Active listening [] Non-anxious presence [] Spiritual/emotional support [] Crisis/trauma care [] Spiritual counseling [] Bereavement support [] Provided bereavement packet [] Provided Bible/devotional materials [] Provided toy/stuffed animal, coloring book to patient or family member [] Provided Communion [] Anointing/[place] [] Salvation [] Completed spiritual assessment [] Other: Impact on Illness or Injury [] Angry [] Fearful [] Anxious [] Often cries [] Exhaustion [] Unable to work [] Unable to attend orthodoxy [] Unable to walk/stand [] Unable to read [] Unable to drive [] Unable to eat/drink [] Unable to sleep [] Unable to be with family [] Patient intubated [] Other: Summary Time spent with patient 1 min
[2023-12-29 13:19] LABS: Lyme AB Screen <0.90 index
--- NOTE | 2023-12-29 15:00 | P.CONIM_ITS ---
Providers/Reason For Consult 2 Consulting Physician/Specialty*: Cardiovascular medicine Reason for Consult*: Atrial fibrillation Requesting Physician: Rafal Attending Physician: Kody Lyles MD Primary Care Provider: Sacha Smith DO History of Present Illness History of Present Illness iFto Au is a 73 year old male who apparently has a history of atrial fibrillation. I do not know the specifics surrounding that. That is to say I do not know if he has been cardioverted or has ever been on an antiarrhythmic. He has a number of other underlying medical problems to include coronary disease and history of bypass surgery along with valvular heart disease. Yesterday he went to his primary care provider's office at [facility] because he been having a fever up to 102 degrees for couple days. He was concerned that he had a urinary tract infection. His heart rate was above 100 and they immediately sent him to the emergency room. No evaluation for the fever was done. Here he was found to be in atrial flutter with a rapid ventricular response. He was originally placed on intravenous Cardizem. That has been changed over to diltiazem 30 mg every 6 hours by mouth. He is also on metoprolol 50 mg twice daily. Despite that his heart rate remains in the 100-118 range. His creatinine was originally 1.4 but now is back to normal. His other history includes diabetes, prostatic hypertrophy, dyslipidemia, coronary disease with prior myocardial infarction, hypertension, ill-defined heart failure and bypass surgery four-vessel. He also has aortic stenosis. An echocardiogram a year ago revealed an ejection fraction of 73% with mild to moderate left ventricular hypertrophy and grade 2 diastolic dysfunction. He had moderate aortic stenosis at the time with an aortic valve area of 1.3 cm?. He had an an echo after arrival here but because of the tachycardia it was a poor quality study. His ejection fraction was estimated to be only 45% with left ventricular hypertrophy. There is an inconsistency in the aortic valve calculated values. His gradient across the aortic valve is 22 mmHg but it states the aortic valve area was calculated at 0.8 cm?. That does not make sense since the gradient would suggest only mild to moderate aortic stenosis. He was not even aware that his heart rate was high. He was not short of breath. His chest x-ray reveals no evidence of heart failure. His BNP is nearly 9000 however. His troponins were minimally elevated 42, 46 and 46. He has been in atrial flutter with a rapid ventricular response since his arrival. Despite those medications his heart rates are still high. During the course of our conversation he told me that he recently has begun to seek his cardiac care in [place]. He had a less than satisfactory interaction here over the holidays with inability to reach anyone in the office. He decided to transfer his care to [place] and wants to continue to follow-up in [place] after he leaves here. Review of Systems 2 Narrative: Review of systems is unremarkable. Medications/Allergies Home Medications Medication Instructions Recorded Confirmed Last Taken Type metoprolol tartrate 50 mg tablet 50 mg PO BID #60 tabs 10/13/21 12/28/23 12/28/23 Rx amlodipine 10 mg tablet 10 mg PO QAM 03/20/22 12/28/23 12/28/23 History losartan 100 mg tablet 100 mg PO QAM 03/20/22 12/28/23 12/28/23 History simvastatin 40 mg tablet 40 mg PO BEDTIME 03/20/22 12/28/23 12/27/23 History tamsulosin 0.4 mg capsule 0.4 mg PO BEDTIME 03/20/22 12/28/23 12/27/23 History apixaban 5 mg tablet 5 mg PO BID #180 tabs 06/22/23 12/28/23 12/28/23 Rx hydralazine 50 mg tablet 75 mg (1.5 x 50 mg) PO TID #270 09/09/23 12/28/23 12/28/23 Rx tabs isosorbide mononitrate 60 mg 60 mg PO DAILY 12/28/23 12/28/23 12/28/23 History tablet,extended release 24 hr Allergies Allergy/AdvReac Type Severity Reaction Status Date / Time No Known Allergies Allergy Verified 06/20/23 19:26 Current Medications Generic Name Dose Route Start Last Admin Trade Name Freq PRN Reason Stop Dose Admin Diltiazem HCl 60 mg 12/29/23 00:01 12/29/23 11:34 Diltiazem 60 Mg Tablet PO 60 mg Q6H REINIER Administration Doxycycline Hyclate 100 mg/ 100 mls @ 100 mls/hr 12/28/23 09:45 12/29/23 09:36 Sodium Chloride IV 100 mls/hr Q12H REINIER Administration Protocol Metoprolol Tartrate 50 mg 12/29/23 09:00 12/29/23 09:36 Metoprolol Tartrate 50 Mg Tablet PO 50 mg BID REINIER Administration PFSH Acute 2 PFSH: Medical History (Updated 12/29/23 @ 15:09 by Marcel Craven MD) HTN (hypertension) Diabetes mellitus type 2 in nonobese BPH (benign prostatic hyperplasia) Hyperlipidemia CAD (coronary artery disease) History of [place] (myocardial infarction) Palpitations CHF (congestive heart failure) Surgical History (Updated 12/29/23 @ 15:09 by Marcel Craven MD) S/P CABG (coronary artery bypass graft) S/P knee surgery Family History Father CAD (coronary artery disease), Onset Age: 70 from [place] age 83 Mother CAD (coronary artery disease) in her 80s Stroke Hypertension Other Dementia Hyperlipidemia Denies family history of Diabetes Clotting disorder Chronic kidney disease (CKD) Suicide Anesthesia complication Bleeding disorder Family history of premature coronary artery disease Lung disease Cancer Social History Smoking and tobacco/nicotine status: former use of tobacco/nicotine Alcohol intake: current Alcohol intake frequency: few times a week Alcohol type: beer Substance/Drug Use: never Vitals/I&O/Wt Last Vital Signs Temp 97.6 F 12/29/23 11:47 Pulse 100 12/29/23 11:47 Resp 20 H 12/29/23 11:47 BP 150/94 12/29/23 11:47 Pulse Ox 96 12/29/23 11:47 O2 Del Method Room Air 12/29/23 11:47 12/29/23 12/29/23 12/29/23 06:59 14:59 22:59 Intake Total 700 / 700 Output Total 500 / 1150 Balance -500 / -14.417 700 / 700 Weight last 48 hrs Weight 230 lb 6 oz Weight 229 lb Weight 230 lb Physical Exam 2 Narrative: GENERAL: In general he is perfectly comfortable at rest and in no distress HEENT: Exam within normal limits. NECK: Supple without jugular vein distention. The carotid upstroke is normal without bruits. BACK: Exam normal. LUNGS: Clear. HEART: Regular rate and rhythm. Mildly tachycardic ABDOMEN: Benign without organomegaly or tenderness. EXTREMITIES: No edema. NEUROLOGIC: Exam normal. SKIN: Unremarkable. Data 12/29/23 03:50 12/29/23 03:50 Micro: Microbiology 12/28/23 09:35 Blood Culture - Preliminary Blood NEGATIVE TO DATE 12/28/23 09:42 Blood Culture - Preliminary Blood NEGATIVE TO DATE A&P Assessment and plan (1) CAD (coronary artery disease): (2) Hyperlipidemia: (3) Heart murmur: (4) Atherosclerosis of coronary artery of [place] heart without angina pectoris: (5) Aortic valve stenosis, acquired: (6) Atrial fibrillation/flutter: (7) Diabetes mellitus type 2 in nonobese: (8) S/P CABG (coronary artery bypass graft): (9) HTN (hypertension): Qualifiers: Hypertension type: essential hypertension Qualified Code(s): I10 - Essential (primary) hypertension Plan He presents a difficult problem given his desire to have his follow-up care in [place]. He wants me to get him stable enough so that he can be discharged home safely and then follow-up down there. In light of that I will reinstitute his Eliquis and try to adjust his rate control medications to get his rate under better control. He wants to pursue conversion to sinus rhythm in [place]. They will need to decide whether they want to do a transesophageal echo and cardioversion or whether they want to use any type of antiarrhythmics. I do not know whether the echo here showing an ejection fraction of 45% is accurate given the tachycardia while the echo was done and the difficulty in visualization. At some point he will probably need another ischemia evaluation as well. For now I will start the Eliquis again and try to adjust his medications to get his rate under better control. To begin with him going to increase the beta-maximus. If that does not work I will change the diltiazem to verapamil. and Moderate Time for a total of 40 minutes, includes reviewing past or interval history, examining/interviewing patient, placing orders, counseling patient/family/other support, updating patient/family/other support, discussing plan of care with staff, communicating with other healthcare providers and documenting encounter Diagnoses CAD (coronary artery disease) I25.10 Hyperlipidemia E78.5 Heart murmur R01.1 Atherosclerosis of coronary artery of [place] heart without angina pectoris I25.10 Aortic valve stenosis, acquired I35.0 Atrial fibrillation/flutter I48.91; I48.92 Diabetes mellitus type 2 in nonobese E11.9 S/P CABG (coronary artery bypass graft) Z95.1 Essential hypertension I10 Hypertension type: essential hypertension
[2023-12-29] MEDS: metoprolol tartrate 50 mg Tablet 100 MG PO (18:53)
[2023-12-29] MEDS: tamsulosin 0.4 mg Capsule 0.400000000000000022 MG PO (21:58)
[2023-12-29] MEDS: atorvastatin 40 mg Tablet 20 MG PO (21:58)
[2023-12-29] MEDS: apixaban 5 mg Tablet PO (21:58)
[2023-12-30] VITALS (12 sets, daily range): BP systolic 122–165; BP diastolic 82–118; PULSE 81–102; RESP 18–27; TEMP 36.8–37.2; O2SAT 85–97
[2023-12-30] MEDS: dilTIAZem 60 mg Tablet PO ×2 (00:14→05:13)
[2023-12-30 04:30] LABS: Hematocrit 48.3 % (37-53); Lymphocytes # 0.8 10^3/uL (0.8-4.8); Lymphocytes % 33.9 %; Mean Corpuscular HGB Conc 31.7 g/dL (30-55); Mean Corpuscular Hemoglobin 29.4 pg (27-33); Mean Corpuscular Volume 92.9 fl (82-101); Mean Platelet Volume 10.9 fL (7.4-10.4); Monocytes # 0.3 10^3/uL (0.2-0.9); Monocytes % 13.6 %; Neutrophils # 1.15 10^3/uL (1.8-7.7); Nucleated Red Blood Cells % 0 %; Platelet Count 61 10^3/cmm (157-399); Red Cell Distribution Width 14.5 % (12.1-15.1); White Blood Count 2.21 10^3/uL (3.29-11.43)
[2023-12-30 04:54] LABS: Alanine Aminotransferase 26 U/L (0-41); Albumin Level 3.5 g/dL (3.5-5.2); Alkaline Phosphatase 63 U/L (40-130); Anion Gap 13.9 (5-19); Aspartate Amino Transferase 36 U/L (0-40); Blood Urea Nitrogen 18 mg/dL (8-23); Calcium 8.1 mg/dL (8.5-10.5); Carbon Dioxide 22 mmol/L (22-29); Chloride 106 mmol/L (98-107); Creatinine Clr Calc Pharmacy 88.3773; Globulin 3.3 g/dL (1.3-4.6); Glucose 116 mg/dL (65-115); Osmolality Calculated 289 mOsm/kg (285-295); Potassium 3.9 mmol/L (3.5-5.1); Sodium 138 mmol/L (136-145); Total Bilirubin 0.5 mg/dL (0.15-1.2); Total Protein 6.8 g/dL (6.6-8.7)
[2023-12-30 05:41] LABS: Slide Review Slide Review Perform
--- NOTE | 2023-12-30 07:59 | P.PN_ITS ---
Subjective 2 Subjective: Fito is feeling much better today. His heart rate is down in a much more manageable range. I started him back on Eliquis yesterday. This morning his white blood cell count is still low 2.21 and his platelet count has dropped slightly more 61,000. He wants to go home. Vitals/I&O/Wt Last Vital Signs Temp 98.2 F 12/30/23 07:10 Pulse 86 12/30/23 07:10 Resp 21 H 12/30/23 07:10 BP 133/82 12/30/23 07:10 Pulse Ox 96 12/30/23 07:10 O2 Del Method Room Air 12/30/23 07:10 12/29/23 12/30/23 12/30/23 22:59 06:59 14:59 Intake Total 360 / 1160 100 / 1260 Output Total 500 / 500 450 / 450 Balance -140 / 660 100 / 760 -450 / -450 Weight last 48 hrs Weight 230 lb 6 oz Weight 230 lb 6 oz Weight 229 lb Physical Exam 2 Narrative: GENERAL: Generally looks much better and feels much better HEENT: Exam within normal limits. NECK: Supple without jugular vein distention. The carotid upstroke is normal without bruits. BACK: Exam normal. LUNGS: Clear. HEART: Regular rate and rhythm. ABDOMEN: Benign without organomegaly or tenderness. EXTREMITIES: No edema. NEUROLOGIC: Exam normal. SKIN: Unremarkable. Data 12/30/23 03:44 12/30/23 03:44 Micro: Microbiology 12/28/23 09:35 Blood Culture - Preliminary Blood NEGATIVE TO DATE 12/28/23 09:42 Blood Culture - Preliminary Blood NEGATIVE TO DATE A&P Assessment and plan (1) CHF (congestive heart failure): Qualifiers: Heart failure type: diastolic Heart failure chronicity: chronic Qualified Code(s): I50.32 - Chronic diastolic (congestive) heart failure (2) HTN (hypertension): Qualifiers: Hypertension type: essential hypertension Qualified Code(s): I10 - Essential (primary) hypertension (3) S/P CABG (coronary artery bypass graft): (4) Elevated troponin: (5) Atrial fibrillation/flutter: (6) Aortic valve stenosis, acquired: (7) Atherosclerosis of coronary artery of [place] heart without angina pectoris: (8) CAD (coronary artery disease): (9) Thrombocytopenia: (10) Leukopenia: (11) Diabetes mellitus type 2 in nonobese: Plan I think he can safely go home. He we will try to send him home on the Eliquis but we should have his primary care physician check his blood count to make sure that he is white blood cells and platelets are coming up. We are assuming this is related to a tickborne illness. He is still in atrial flutter but the rate is better. Attestations 2 Medical Necessity Statement*: Discharge today and Moderate Time for a total of 30 minutes, includes reviewing past or interval history, examining/interviewing patient, counseling patient/family/other support, updating patient/family/other support, discussing plan of care with staff, communicating with other healthcare providers, documenting encounter and coordinating care Diagnoses Chronic diastolic congestive heart failure I50.32 Heart failure type: diastolic Heart failure chronicity: chronic Essential hypertension I10 Hypertension type: essential hypertension S/P CABG (coronary artery bypass graft) Z95.1 Elevated troponin R79.89 Atrial fibrillation/flutter I48.91; I48.92 Aortic valve stenosis, acquired I35.0 Atherosclerosis of coronary artery of [place] heart without angina pectoris I25.10 CAD (coronary artery disease) I25.10 Thrombocytopenia D69.6 Leukopenia D72.819 Diabetes mellitus type 2 in nonobese E11.9
[2023-12-30] MEDS: dilTIAZem ER (24HR) 240 mg Capsule PO (10:33)
[2023-12-30] MEDS: doxycycline 100 MG in sodium chloride 0.9% (plus) 100 ML IV (10:33)
[2023-12-30] MEDS: metoprolol tartrate 50 mg Tablet 100 MG PO (10:33)
[2023-12-30] MEDS: apixaban 5 mg Tablet PO (10:34)
[2023-12-30 11:21] LABS: Magnesium 1.9 mg/dL (1.7-2.3)
[2023-12-30] MEDS: doxycycline 100 mg Tablet PO (11:25)
--- NOTE | 2023-12-30 12:14 | PM.DCS ---
Discharge Providers Date of Admission: 12/28/23 10:02 Date of Discharge: December 30, 2023 Attending Provider at Admission: Kody Lyles MD Attending Provider at Discharge: Kody Lyles MD Primary Care Provider: Sacha Smith DO Diagnoses at Discharge Discharge Diagnosis (1) CHF (congestive heart failure): Status: Acute Qualifiers: Heart failure chronicity: chronic Heart failure type: diastolic Qualified Code(s): I50.32 - Chronic diastolic (congestive) heart failure (2) HTN (hypertension): Status: Acute Qualifiers: Hypertension type: essential hypertension Qualified Code(s): I10 - Essential (primary) hypertension (3) S/P CABG (coronary artery bypass graft): Status: Acute (4) Elevated troponin: Status: Acute (5) Atrial fibrillation/flutter: Status: Acute (6) Aortic valve stenosis, acquired: Status: Acute (7) Atherosclerosis of coronary artery of [place] heart without angina pectoris: Status: Acute (8) CAD (coronary artery disease): Status: Acute (9) Thrombocytopenia: Status: Acute (10) Leukopenia: Status: Acute (11) Diabetes mellitus type 2 in nonobese: Status: Acute Reason for Visit Reason for Visit: Afib, sent by [facility] Course Hospital Course Check is a 73-year-old white male who presented to the hospital with elevated heart rate. He was diagnosed with A-fib with RVR. He also had a low white blood cell count, and low platelet count and had recent exposure to t ticks. A tick panel was started and he was started on doxycycline. Respiratory panel was performed and he did not have COVID. He had some mild degree of acute kidney injury. A diltiazem drip that was started initially was converted to p.o. Cardiology consultation was ultimately obtained and metoprolol was increased as well which she was on at baseline. His apixaban was continued. Echocardiogram demonstrated an EF of around 45% with moderate to severe aortic stenosis. With these changes he stabilized and heart rate was approximately 85, atrial flutter. He did not run any fever in the hospital. White blood cell count rebounded somewhat and lymphopenia was improving at time of discharge. Platelets were still low, at 61,000 but minimally decreased from the day before. He was very much wanting to go home, and it appears this is appropriate at this time. He was counseled on risks of bleeding, and to monitor himself at home. He will have a repeat CBC tomorrow with his primary care provider who I visited with about his hospital course. He will follow-up with cardiology at [place] for his aortic stenosis and diminished EF. He and his were able to ask questions and agreed with the plan. Physical Exam Narrative: General exam no distress Cardiovascular irregular, 2/6 systolic murmur Lungs clear Abdomen soft Extremities no cyanosis, edema. Discharge Data Studies Completed and Pending Completed Studies During Hospitalization Category Date Time Status XR chest 1V portable [id number] Stat Exams 12/28/23 07:44 Completed CV. echo complete* [id number] Routine Ultrasound 12/28/23 09:43 Completed Pending at discharge Category Date Time Status Blood Culture Stat Lab 12/28/23 09:35 Results Tick Panel Stat Lab 12/28/23 09:35 Results Radiology Impressions Chest X-Ray 12/28/23 07:44 IMPRESSION: Prior CABG. No pneumonia. Laboratory Results WBC 2.21 10^3/uL (3.29-11.43) L 12/30/23 03:44 RBC 5.20 10^6/uL (3.85-5.65) 12/30/23 03:44 Hgb 15.30 g/dL (11.27-16.99) 12/30/23 03:44 Hct 48.3 % (37-53) 12/30/23 03:44 MCV 92.9 fl (82-101) 12/30/23 03:44 MCH 29.4 pg (27-33) 12/30/23 03:44 MCHC 31.7 g/dL (30-55) 12/30/23 03:44 RDW 14.5 % (12.1-15.1) 12/30/23 03:44 Plt Count 61 10^3/cmm (157-399) L 12/30/23 03:44 MPV 10.9 fL (7.4-10.4) H 12/30/23 03:44 Neut % (Auto) 52.0 % 12/30/23 03:44 Lymph % (Auto) 33.9 % 12/30/23 03:44 [place] % (Auto) 13.6 % 12/30/23 03:44 Eos % (Auto) 0.0 % 12/30/23 03:44 Baso % (Auto) 0.0 % 12/30/23 03:44 Neut # (Auto) 1.15 10^3/uL (1.8-7.7) L 12/30/23 03:44 Lymph # (Auto) 0.8 10^3/uL (0.8-4.8) 12/30/23 03:44 [place] # (Auto) 0.3 10^3/uL (0.2-0.9) 12/30/23 03:44 Eos # (Auto) 0.0 10^3/uL (0.0-0.8) 12/30/23 03:44 Baso # (Auto) 0.0 10^3/uL (0.0-0.1) 12/30/23 03:44 Nucleated RBC % (auto) 0 % 12/30/23 03:44 Nucleated RBCs # 0.0 /100WBC 12/30/23 03:44 Haptoglobin 221.0 mg/L (30-200) H 12/29/23 03:50 Sodium 138 mmol/L (136-145) 12/30/23 03:44 Potassium 3.9 mmol/L (3.5-5.1) 12/30/23 03:44 Chloride 106 mmol/L (98-107) 12/30/23 03:44 Carbon Dioxide 22 mmol/L (22-29) 12/30/23 03:44 Anion Gap 13.9 (5-19) 12/30/23 03:44 BUN 18 mg/dL (8-23) 12/30/23 03:44 Creatinine 0.9 mg/dL (0.7-1.2) 12/30/23 03:44 GFR Calculation Not Reportable 12/30/23 03:44 Glucose 116 mg/dL (65-115) H 12/30/23 03:44 Calculated Osmolality 289 mOsm/kg (285-295) 12/30/23 03:44 Lactic Acid 1.6 mmol/L (0.5-2.2) 12/28/23 08:00 Calcium 8.1 mg/dL (8.5-10.5) L 12/30/23 03:44 Magnesium 1.9 mg/dL (1.7-2.3) 12/30/23 03:44 Total Bilirubin 0.5 mg/dL (0.15-1.2) 12/30/23 03:44 AST 36 U/L (0-40) 12/30/23 03:44 ALT 26 U/L (0-41) 12/30/23 03:44 Alkaline Phosphatase 63 U/L (40-130) 12/30/23 03:44 Lactate Dehydrogenase 204 U/L (135-225) 12/29/23 03:50 Troponin T Baseline 42 ng/L (0-15) H 12/28/23 08:00 Troponin T 120 Minute 46.48 ng/L (0-15) H 12/28/23 10:00 Delta Troponin T 4.48 ABS# (0-10) 12/28/23 10:00 Troponin T Hi Sens 6Hr 46.09 ng/L (0-15) H 12/28/23 15:05 Troponin T Hi Sens 6Hr Delta 4.09 ng/L (0-12) 12/28/23 15:05 NT-Pro-B Natriuret Pep 8943 pg/mL (0-125) H 12/28/23 08:00 Total Protein 6.8 g/dL (6.6-8.7) 12/30/23 03:44 Albumin 3.5 g/dL (3.5-5.2) 12/30/23 03:44 Globulin 3.3 g/dL (1.3-4.6) 12/30/23 03:44 TSH 3.30 uIU/mL (0.27-4.20) 12/28/23 08:00 Urine Color Yellow (Yellow) 12/28/23 09:58 Urine Appearance Slightly cloudy (CLEAR) 12/28/23 09:58 Urine pH 5 (5-7) 12/28/23 09:58 Ur Specific [place] 1.020 (1.005-1.030) 12/28/23 09:58 Urine Protein 2+ (Negative) H 12/28/23 09:58 Urine Glucose (UA) Norm (Normal) 12/28/23 09:58 Urine Ketones 1+ (Negative) H 12/28/23 09:58 Urine Blood Neg (Negative) 12/28/23 09:58 Urine Nitrate Negative (Negative) 12/28/23 09:58 Urine Bilirubin 1+ (Negative) H 12/28/23 09:58 Urine Urobilinogen 1 mg/dL (Negative) H 12/28/23 09:58 Ur Leukocyte Esterase Negative (Negative) 12/28/23 09:58 Urine RBC 0-4 /hpf (0-2) H 12/28/23 09:58 Urine WBC 0-4 /hpf (0-5) H 12/28/23 09:58 Ur Squamous Epith Cells 0-4 /hpf (0-5) H 12/28/23 09:58 Amorphous Sediment Not Reportable 12/28/23 09:58 Urine Bacteria Trace /hpf (NONE) 12/28/23 09:58 Hyaline Casts 55-80 /lpf H 12/28/23 09:58 Urine Mucus 1+ /hpf 12/28/23 09:58 Adenovirus (PCR) Not detected (NOT DETECT) 12/28/23 10:07 Lyme Ab (Western Blot) <0.90 index 12/28/23 09:35 C. pneumoniae DNA (PCR) Not detected (NOT DETECT) 12/28/23 10:07 Coronavirus 229E (PCR) Not detected (NOT DETECT) 12/28/23 10:07 Human Metapneumovir PCR Not detected (NOT DETECT) 12/28/23 10:07 Influenza A (H1) PCR Not detected (NOT DETECT) 12/28/23 10:07 Influ A (H1/09) PCR Not detected (NOT DETECT) 12/28/23 10:07 Influenza A (H3) PCR Not detected (NOT DETECT) 12/28/23 10:07 Influenza Type A (PCR) Not detected (NOT DETECT) 12/28/23 10:07 Influenza Type B (PCR) Not detected (NOT DETECT) 12/28/23 10:07 M. pneumoniae (PCR) Not detected (NOT DETECT) 12/28/23 10:07 Parainfluenza 1 (PCR) Not detected (NOT DETECT) 12/28/23 10:07 Parainfluenza 2 (PCR) Not detected (NOT DETECT) 12/28/23 10:07 Parainfluenza 3 (PCR) Not detected (NOT DETECT) 12/28/23 10:07 Parainfluenza 4 (PCR) Not detected (NOT DETECT) 12/28/23 10:07 RSV Type A (PCR) Not detected (NOT DETECT) 12/28/23 10:07 RSV Type B (PCR) Not detected (NOT DETECT) 12/28/23 10:07 Entero/Rhino (PCR) Not detected (NOT DETECT) 12/28/23 10:07 SARS-CoV-2 (PCR) Not detected (NOT DETECT) 12/28/23 10:07 Vitals Last Vital Signs Temp 98.5 F 12/30/23 11:41 Pulse 84 12/30/23 11:41 Resp 18 12/30/23 11:41 BP 122/87 12/30/23 11:41 Pulse Ox 96 12/30/23 11:41 O2 Del Method Room Air 12/30/23 11:41 Discharge Plan Discharge Patient Disposition: Home Condition: Stable Prescriptions: New diltiazem HCl 240 mg Capsule,Extended Release 24hr 240 mg PO DAILY Qty: 30 0RF isosorbide mononitrate 30 mg tablet extended release 24 hr 30 mg PO DAILY Qty: 30 0RF metoprolol tartrate 50 mg Tablet 100 mg PO BID Qty: 120 0RF doxycycline hyclate 100 mg capsule 100 mg PO BID 7 Days Qty: 14 0RF Continued apixaban 5 mg tablet 5 mg PO BID Qty: 180 3RF tamsulosin 0.4 mg capsule 0.4 mg PO BEDTIME simvastatin 40 mg tablet 40 mg PO BEDTIME Discontinued metoprolol tartrate 50 mg tablet 50 mg PO BID Qty: 60 0RF hydralazine 50 mg tablet 75 mg PO TID Qty: 270 3RF amlodipine 10 mg tablet 10 mg PO QAM losartan 100 mg tablet 100 mg PO QAM isosorbide mononitrate 60 mg tablet extended release 24 hr 60 mg PO DAILY Discharge Orders: Discharge Order (Routine); Ordered 12/30/23 Ordered By: Kody Lyles Referrals: Sacha Smith DO [Primary Care Provider] - 01/06/24 10:20 am (Please arrange CBC tomorrow, with Dr. Smith prior to discharge. Your appointment will be with Shawnee Saldivar and you will be having blood work that day as well. You can call the Office if you have any questions or concerns. Thank you.) Ron Oliva MD [Referring] - 2 weeks Discharge Diet: Cardiac Discharge Activity: Increase activity as tolerated Patient Instructions: Metoprolol (By mouth) (Lopressor, Toprol XL), Diltiazem (By mouth) (Cardizem, Cardizem CD, Cardizem LA, Cardizem SR), Doxycycline (By mouth) (Acticlate, Adoxa, Avidoxy, Monodox, Doryx), Isosorbide Mononitrate (By mouth) (Imdur, Imdur ER, Ismo), Heart Failure (DC), CHF Stoplight, Opioid Safety Activity Restrictions/Additional Instructions: Take all medicine as prescribed Follow-up with primary care provider 3 to 5 days CBC tomorrow Monitor for any bleeding Return for any concerns Discharge Attestations Time Spent in Discharge Care*: greater than 30 min Quality Metrics Clinical Quality Measures [ No reported AMI, CVA or VTE this stay] Coding Level of Care Code 87263 Total time (in minutes) for Discharge: 34 Diagnoses Chronic diastolic congestive heart failure I50.32 Heart failure chronicity: chronic Heart failure type: diastolic Essential hypertension I10 Hypertension type: essential hypertension S/P CABG (coronary artery bypass graft) Z95.1 Elevated troponin R79.89 Atrial fibrillation/flutter I48.91; I48.92 Aortic valve stenosis, acquired I35.0 Atherosclerosis of coronary artery of [place] heart without angina pectoris I25.10 CAD (coronary artery disease) I25.10 Thrombocytopenia D69.6 Leukopenia D72.819 Diabetes mellitus type 2 in nonobese E11.9
--- NOTE | 2023-12-30 13:52 | PC.NURSE ---
Addendum entered by Tobias Soler RN 12/30/23 14:58: Pt d/c to home via w/c to POV accompanied by his . New medications scripts were faxed to [facility]. Pt went home with all known belongings. Original Note: Discharge Note Patient discharged to [] via [] accompanied by []. Discharge instructions reviewed with patient and/or veterans contact representative. Mobile pharmacy medications and/or prescriptions provided. Belongings/home medications returned.
[2024-01-04 15:54] LABS: RMSF IGG NOT DETECTED; RMSF IGM NOT DETECTED
[2024-01-07 17:00] LABS: E. Chaffeensis AB IGM <1:20; Interpretation PAST INFECTION
== END 2023-12-30 14:05 | disposition home or self-care (01) ==
LOC: ER 09:28 → CSU 18:16 → ER IP 18:18
PROVIDERS: Admitting Provider Internal Medicine; Emergency Provider Family Medicine; PCP Internal Medicine; Visit Provider Internal Medicine
DX: I11.0 Hypertensive heart disease with heart failure (principal); I50.32 Chronic diastolic (congestive) heart failure; Z95.1 Presence of aortocoronary bypass graft; R79.89 Other specified abnormal findings of blood chemistry; I48.91 Unspecified atrial fibrillation; I48.92 Unspecified atrial flutter; I35.0 Nonrheumatic aortic (valve) stenosis; I25.10 Atherosclerotic heart disease of native coronary artery without angina pectoris; D69.6 Thrombocytopenia, unspecified; D72.819 Decreased white blood cell count, unspecified; E11.9 Type 2 diabetes mellitus without complications; Z79.01 Long term (current) use of anticoagulants; I25.2 Old myocardial infarction; N40.0 Benign prostatic hyperplasia without lower urinary tract symptoms; Z87.891 Personal history of nicotine dependence; N17.9 Acute kidney failure, unspecified; R50.9 Fever, unspecified; Z82.49 Family history of ischemic heart disease and other diseases of the circulatory system
CPT/HCPCS: 36415; 51798; 71045; 80053; 81001; 81015; 83010; 83605; 83615; 83735; 83880; 84443; 84484; 85025; 86618; 86666; 86757; 87040; 87486; 87581; 87633; 93005; 93306; 96365; 96366; 96367; 96372; 96375; 96376; 99291; 99292; G0378; J1650; J3490; J7040